=== PATIENT | male | born 1970 | race Caucasian/White ===

== ENCOUNTER → 2016-08-21 | Outpatient (CLI) | payer OTHER ==
[~2016-08-21] MED LIST: LEVO50TA PO; PRLSR20 PO
[2016-08-21 14:27] LABS: ESTIMATED AVERAGE GLUCOSE 126 mg/dl; HA1C FLAG Normal (Normal)
[2016-08-21 17:08] LABS: ALT/SGPT 75 U/L (12-78); AST/SGOT 38 U/L (15-37); BLOOD UREA NITROGEN 9 mg/dl (7-18); CALCIUM 8.7 mg/dl (8.5-10.1); CARBON DIOXIDE 26 mmol/L (21-32); CHLORIDE 105 mmol/L (98-107); GLUCOSE 76 mg/dl (70-99); POTASSIUM 4.4 mmol/L (3.5-5.1); SODIUM 138 mmol/L (136-145)
[2016-08-21 17:19] LABS: ALB/GLOB RATIO 1.1 (0.9-2); ALKALINE PHOSPHATASE 92 U/L (45-117); CHOLESTEROL 234 mg/dl (0-200); CHOLESTEROL/HDL RATIO 8.1; HDL CHOLESTEROL 29 mg/dl; LDL CHOLESTEROL CALCULATED 166 mg/dl; TRIGLYCERIDES 197 mg/dl (0-150); VERY LOW DENSITY LIPOPROT CALC 39 mg/dl
== END | disposition home or self-care (01) ==
LOC: C.LABBC 12:13
PROVIDERS: ATTEND Internal Medicine
DX: R73.03 Prediabetes (principal)

== ENCOUNTER → 2017-03-04 | Outpatient (CLI) | payer OTHER ==
[2017-03-04 11:42] LABS: ALT/SGPT 68 U/L (12-78); AST/SGOT 39 U/L (15-37); BLOOD UREA NITROGEN 14 mg/dl (7-18); BUN/CREATININE RATIO 11.6 (10-20); CALCIUM 8.9 mg/dl (8.5-10.1); CARBON DIOXIDE 28 mmol/L (21-32); CHLORIDE 106 mmol/L (98-107); CHOLESTEROL 260 mg/dl (0-200); GLUCOSE 88 mg/dl (70-99); POTASSIUM 4.6 mmol/L (3.5-5.1); SODIUM 138 mmol/L (136-145)
[2017-03-04 12:11] LABS: ALKALINE PHOSPHATASE 85 U/L (45-117); CHOLESTEROL/HDL RATIO 7.4; HDL CHOLESTEROL 35 mg/dl; LDL CHOLESTEROL CALCULATED 199 mg/dl; TRIGLYCERIDES 128 mg/dl (0-150); VERY LOW DENSITY LIPOPROT CALC 26 mg/dl
[2017-03-04 12:21] LABS: ESTIMATED AVERAGE GLUCOSE 120 mg/dl; HA1C FLAG Normal (Normal)
--- NOTE | 2017-03-10 06:11 | CODING QUERY MEDICAL NECESSITY ---
CQSUPPORTING DIAGNOSIS NEEDED A supporting diagnosis is required for the test/procedure performed on this patient in order for us to be reimbursed by the patient's insurance. Please provide a supporting diagnosis for the following test/procedure listed below next to the test name along with your signature. *If there is no additional diagnosis for this patient that would support the following test/procedure please document that below next to the test/procedure. Test(s)/Procedure(s) that require a supporting diagnosis: BIN 03/04/17 GLYCATED HEMOGLOBIN TEST Provider Signature: Date: Thank you Charity Gill Health Information Management Once completed, please kindly fax back to [phone] For questions please call [phone]
== END | disposition home or self-care (01) ==
LOC: C.LABBC 07:28
PROVIDERS: ATTEND Internal Medicine
DX: E03.9 Hypothyroidism, unspecified (principal); R73.9 Hyperglycemia, unspecified

== ENCOUNTER → 2017-06-03 | Outpatient (CLI) | payer OTHER ==
[2017-06-03 11:32] LABS: CHOLESTEROL/HDL RATIO 7.4; THYROID STIMULATING HORMONE 2.06 uIu/ml (0.300-4.500)
== END | disposition home or self-care (01) ==
LOC: C.LABBC 08:16
PROVIDERS: ATTEND Internal Medicine
DX: E78.5 Hyperlipidemia, unspecified (principal); E03.9 Hypothyroidism, unspecified

== ENCOUNTER 2020-03-14 09:09 | Inpatient (IN) ==
[2020-03-14] MEDS ORDERED: NITROGLYCERIN SL 0.4 MG/TAB TAB SL STA (09:14)
[2020-03-14] MEDS ORDERED: NITROGLYCERIN 2% OINTMENT 30GM TUBE EXT SCH (09:15)
--- NOTE | 2020-03-14 09:19 | Emergency Department Note ---
History of Present Illness General Chief Complaint: Chest Pain Stated Complaint: Chest pain w/ radiation to left arm Time Seen by Provider: 03/14/20 09:10 Source: patient, family (), EMS, RN notes reviewed and old records reviewed Mode of arrival: EMS Limitations: no limitations History of Present Illness Provider Complaint: chest pain Onset (ago): hour(s) 3 Duration: constant Onset: other (while shaving) Pain Location: left chest Pain Radiation: LUE Severity: moderate Current Pain Intensity: 5 Quality: + aching Relieved By: + nitroglycerin Exacerbated By: + movement Associated symptoms: + nausea, + diaphoresis and + palpitations Treatments prior to arrival: aspirin This is a 49-year-old male who was shaving this morning approximately 3 hours ago when he began having left-sided chest pain that radiated into his left arm. He reports nothing is made the pain better or worse. He called EMS who gave the patient 324 of aspirin. He was then brought to the emergency department. The patient reports no cardiac history. He does cigarette smoke. He reports sweating as well as nausea with the pain. Home Medications Home Medications Medication Instructions Recorded Confirmed Type sildenafil 50 mg tablet 50 mg PO DAILY PRN #6 tab 04/13/19 03/14/20 History omeprazole 20 mg capsule,delayed 20 mg PO QAM cap 04/16/19 03/14/20 History release levothyroxine 150 mcg tablet 150 mcg PO DAILY #90 tab 09/22/19 03/14/20 Rx Allergies Allergy/AdvReac Type Severity Reaction Status Date / Time No Known Allergies Allergy Unverified 03/14/20 09:44 Past Med/Surg History Medical History Cigarette smoker Dyslipidemia Gastroesophageal reflux disease Hepatic steatosis Hypothyroidism Metabolic syndrome Social History Smoking Status: Current every day smoker Cigarettes Per Day: 1-1.5 ppd; Hx Alcohol Use: No Hx Substance Use: No Preferred Language: Finnish Communication Ability: Effective Real Estate Officer Required: No Beliefs That Will Affect Care: None marital status: Single Current Living Situation: Spouse Feels Safe at Home: Yes Review of Systems A total of 10 systems reviewed and were otherwise negative Physical Exam Vital Signs Vital Signs - 24 hr 03/14/20 09:30 03/14/20 09:39 08/20/20 09:46 Temperature 36.4 C L Temperature Source Oral Pulse Rate 52 L 56 L 57 L Pulse Rate from SpO2 Sensor 57 L 56 L Pulse Rhythm Regular Pulse Strength Normal Respiratory Rate 18 24 18 Respiratory Effort / Characteristics Non-Labored Spontaneous Respiratory Depth Normal Respiratory Pattern Regular Blood Pressure 138/99 112/65 97/68 L Blood Pressure Mean 112 77 76 Pulse Oximetry 99 93 93 Oxygen Delivery Method Room Air Sepsis Recent Fever Within 48 Hours No Sepsis New/Unexplained Change in Mental Status No Sepsis Action Taken by Nursing No Action Required 03/14/20 09:48 03/14/20 09:51 Temperature Temperature Source Pulse Rate Pulse Rate from SpO2 Sensor Pulse Rhythm Pulse Strength Respiratory Rate Respiratory Effort / Characteristics Respiratory Depth Respiratory Pattern Blood Pressure Blood Pressure Mean Pulse Oximetry 98 Oxygen Delivery Method Room Air Room Air Sepsis Recent Fever Within 48 Hours Sepsis New/Unexplained Change in Mental Status Sepsis Action Taken by Nursing VITAL SIGNS - Vital signs and nursing notes were reviewed. GENERAL - 49-year-old appearing stated age who is in no acute distress. Communicates well with provider and answers questions appropriately. SKIN - Without rashes. HEAD - NC/AT. EYES - PERRL with EOMI bilaterally. Sclera anicteric. Palpebral conjunctiva pink and moist with no injection noted. EARS - No deformities of external structures noted on gross examination bilaterally. No pain elicited with palpation of the tragus bilaterally. External auditory canals without discharge or otorrhea. Tympanic membranes pearly victoria without retraction or bulging. No fluid or purulent material visualized behind the TM. Handle of malleus, umbo, cone of light, pars tensa/flaccid all easily visualized. NOSE - Midline and without cyanosis. No epistaxis or purulent drainage noted. Septum midline without deviation or septal hematoma noted. MOUTH/OROPHARYNX - Without perioral cyanosis. Buccal mucosa pink and moist and without leukoplakia. Tongue midline with equal elevation of palate bilaterally. No tonsillar hypertrophy, erythema, or exudates noted. dentition noted. NECK - Neck with FROM. Supple to palpation. lymphadenopathy noted. No nuchal rigidity. LUNGS - Chest wall symmetric without accessory muscle use, intercostals retractions, or central cyanosis. Normal vesicular breath sounds CTA B/L. No wheezes, rales, or rhonchi appreciated. CARDIAC - RRR with S1/S2. No murmur, rubs, or gallops appreciated. ABDOMEN - Abdominal contour without pulsations or visible masses. BS normoactive all four quadrants. No tenderness, palpable masses, hepatosplenomegaly, or ascites noted. EXTREMITIES - No clubbing or peripheral cyanosis. No pretibial edema present. +3/5 radial, posterior tibial, and dorsalis pedis pulses palpated throughout. +5/5 strength noted in UE/LE bilaterally. NEUROLOGIC - Cranial nerves II through XII grossly intact. Sensory intact to light touch throughout. Patellar reflexes +2/4. PSYCH - A&Ox3 and cooperates fully with examiner. Pt is very pleasant and interacts well with examiner. Course Administered Medications Aspirin (Aspirin 81 Mg Ectab) 81 mg PO QAM [facility] Stop: 04/14/20 08:59 Last Admin: 03/15/20 07:56 Dose: 81 mg Documented by: [id number] Atorvastatin Calcium (Atorvastatin 40 Mg Tab) 80 mg PO QAM [facility] Stop: 04/14/20 08:59 Last Admin: 03/15/20 07:58 Dose: 80 mg Documented by: [id number] Enoxaparin Sodium (Enoxaparin Inj 40 Mg/0.4 Ml Syr) 40 mg SQ Q24H [facility] Stop: 04/13/20 17:59 Last Admin: 03/14/20 18:31 Dose: 40 mg Documented by: [id number] Sodium Chloride (Nss 1000ml) 1,000 mls @ 125 mls/hr IV .Q8H [facility] Stop: 04/13/20 15:29 Last Admin: 03/15/20 07:58 Dose: Not Given Documented by: [id number] Infusion: 03/15/20 07:56 Dose: 0 mls/hr Documented by: [id number] Admin: 03/14/20 23:41 Dose: 125 mls/hr Documented by: [id number] Infusion: 03/14/20 23:41 Dose: 125 mls/hr Documented by: [id number] Admin: 03/14/20 15:46 Dose: 125 mls/hr Documented by: [id number] Levothyroxine Sodium (Levothyroxine Sodium 150 Mcg Tablet) 150 mcg PO DAILYBB [facility] Stop: 04/14/20 06:29 Last Admin: 03/15/20 06:29 Dose: 150 mcg Documented by: [id number] Lisinopril (Lisinopril 5 Mg Tab) 5 mg PO QAM [facility] Stop: 04/14/20 08:59 Last Admin: 03/15/20 07:56 Dose: 5 mg Documented by: [id number] Pantoprazole Sodium (Pantoprazole 40 Mg Tab) 40 mg PO QAM [facility] Stop: 04/14/20 08:59 Last Admin: 03/15/20 07:57 Dose: 40 mg Documented by: [id number] Ticagrelor (Ticagrelor 90 Mg Tab) 90 mg PO BID [facility] Stop: 04/13/20 22:59 Last Admin: 03/15/20 07:56 Dose: 90 mg Documented by: [id number] Admin: 03/14/20 22:38 Dose: 90 mg Documented by: [id number] Discontinued Medications Atropine Sulfate (Atropine Sulfate 0.1 Mg/Ml 10ml Syr) Confirm Administered Dose 1 mg IV .STK-MED ONE Stop: 03/14/20 10:18 Last Admin: 03/14/20 15:12 Dose: Not Given Documented by: [id number] Atropine Sulfate (Atropine Sulfate 0.1 Mg/Ml 10ml Syr) Confirm Administered Dose 1 mg IV .STK-MED ONE Stop: 03/14/20 10:22 Last Admin: 03/14/20 15:09 Dose: 1 mg Documented by: [id number] Dopamine HCl/Dextrose (Dopamine 400mg / 250ml D5w ([facility] Use Only)) Confirm Administered Dose 400 mg .ROUTE .STK-MED ONE Stop: 03/14/20 10:21 Last Admin: 03/14/20 17:43 Dose: Not Given Documented by: [id number] Eptifibatide (Eptifibatide 2 Mg/Ml 10 Ml Vial ([facility] Use Only)) Confirm Administered Dose 40 mg IV .STK-MED ONE Stop: 03/14/20 10:26 Last Admin: 03/14/20 15:11 Dose: 1.4 mg Documented by: [id number] Eptifibatide (Eptifibatide 2 Mg/Ml 10 Ml Vial ([facility] Use Only)) Confirm Administered Dose 20 mg IV .STK-MED ONE Stop: 03/14/20 10:29 Last Admin: 03/14/20 15:10 Dose: 20 mg Documented by: [id number] Fentanyl Citrate (Fentanyl Citrate 100 Mcg/2 Ml Vial) Confirm Administered Dose 100 mcg .ROUTE .STK-MED ONE Stop: 03/14/20 09:43 Last Admin: 03/14/20 17:42 Dose: Not Given Documented by: [id number] Heparin Sodium (Porcine) (Heparin Sod (Porcine) 1000 Unit/Ml 10 Ml Vial) Confirm Administered Dose 10,000 units .ROUTE .STK-MED ONE Stop: 03/14/20 09:41 Last Admin: 03/14/20 09:41 Dose: 5,000 units Documented by: [id number] Cosigned by: [id number] Heparin Sodium (Porcine) (Heparin Sod (Porcine) 1000 Unit/Ml 10 Ml Vial) 5,000 units IV ONE ONE Stop: 03/14/20 09:42 Last Admin: 03/14/20 09:46 Dose: Not Given Documented by: [id number] Heparin Sodium (Porcine) (Heparin (Porcine) 1000 Unit/Ml 10 Ml ([facility] Use Only)) Confirm Administered Dose 10,000 units .ROUTE .STK-MED ONE Stop: 03/14/20 09:43 Last Admin: 03/14/20 15:12 Dose: 5,000 units Documented by: [id number] Heparin Sodium/Sodium Chloride (Heparin In Nss Infusion 1000 Unit/500 Ml (2 U/Ml) Bag) Confirm Administered Dose 3,000 units IV .STK-MED ONE Stop: 03/14/20 09:43 Last Admin: 03/14/20 17:42 Dose: Not Given Documented by: [id number] Sodium Chloride (Nss 1000ml) 1,000 mls @ 100 mls/hr IV .Q10H [facility] Stop: 03/14/20 18:44 Last Infusion: 03/14/20 13:49 Dose: 0 mls/hr Documented by: [id number] Admin: 03/14/20 13:32 Dose: 100 mls/hr Documented by: [id number] Sodium Chloride (Nss) 500 mls @ 125 mls/hr IV .Q4H [facility] Stop: 04/13/20 13:59 Last Infusion: 03/14/20 17:47 Dose: 0 mls/hr Documented by: [id number] Admin: 03/14/20 15:08 Dose: 125 mls/hr Documented by: [id number] Sodium Chloride (Nss) 500 mls @ 999 mls/hr IV .Q31M [facility] Stop: 03/14/20 16:00 Last Infusion: 03/14/20 15:34 Dose: 0 mls/hr Documented by: [id number] Admin: 03/14/20 14:45 Dose: 999 mls/hr Documented by: [id number] Levothyroxine Sodium (Levothyroxine Sodium 150 Mcg Tablet) 150 mcg PO ONE ONE Stop: 03/14/20 13:30 Last Admin: 03/14/20 15:14 Dose: 150 mcg Documented by: [id number] Metoprolol Tartrate (Metoprolol Tartrate 1 Mg/Ml Vial) Confirm Administered Dose 5 mg IV .[facility]-MED ONE Stop: 03/14/20 10:30 Last Admin: 03/14/20 15:10 Dose: Not Given Documented by: [id number] Midazolam HCl (Midazolam Hcl 1 Mg/Ml 2ml Vial) Confirm Administered Dose 2 mg .ROUTE .[facility] ONE Stop: 03/14/20 09:43 Last Admin: 03/14/20 17:45 Dose: Not Given Documented by: [id number] Nicardipine HCl (Nicardipine Hcl Inj 2.5 Mg/Ml 10 Ml Amp) Confirm Administered Dose 25 mg .ROUTE .[facility] ONE Stop: 03/14/20 09:43 Last Admin: 03/14/20 17:42 Dose: Not Given Documented by: [id number] Nitroglycerin (Nitroglycerin 2% Ointment 30gm Tube) 1 inch EXT Q6H [facility] Stop: 04/13/20 09:14 Last Admin: 03/14/20 09:23 Dose: 1 inch Documented by: [id number] Nitroglycerin (Nitroglycerin Sl 0.4 Mg/Tab Tab) 0.4 mg SL NOW STA Stop: 03/14/20 09:15 Last Admin: 03/14/20 09:23 Dose: 0.4 mg Documented by: [id number] Nitroglycerin/Dextrose (Nitroglycerin/D5w 100mcg/Ml 20ml Syr) Confirm Administered Dose 2,000 mcg .ROUTE .[facility]-MED ONE Stop: 03/14/20 10:18 Last Admin: 03/14/20 17:44 Dose: Not Given Documented by: [id number] Norepinephrine Bitartrate (Norepinephrine Bitartrate 1 Mg/Ml 4 Ml Vial ([facility] Use Only)) Confirm Administered Dose 8 mg .ROUTE .[facility]-MED ONE Stop: 03/14/20 10:27 Last Admin: 03/14/20 17:45 Dose: Not Given Documented by: [id number] Ondansetron HCl (Ondansetron Inj 2 Mg/Ml 2 Ml Vial) Confirm Administered Dose 4 mg .ROUTE .STK-MED ONE Stop: 03/14/20 10:25 Last Admin: 03/14/20 15:09 Dose: 4 mg Documented by: [id number] Ticagrelor (Ticagrelor 90 Mg Tab) Confirm Administered Dose 180 mg PO .STK-MED ONE Stop: 03/14/20 11:05 Last Admin: 03/14/20 15:10 Dose: 180 mg Documented by: [id number] Medical Decision Making Differential Diagnosis + pneumothorax, + stable angina, + unstable angina pectoris, + atypical chest pain, + st elevation myocardial infarction, + costochondritis, + chest pain, + cardiac ischemia, + myocarditis and + pericarditis Medical Records Attestation: I reviewed the patient's medical records. Home Medications Current Medication List: was personally reviewed by me Laboratory Data Attestation: I reviewed the patient's lab results. Result diagrams: 03/15/20 04:30 03/15/20 04:30 Labs: Lab Results 03/14/20 03/14/20 03/14/20 Range/Units 09:15 09:15 09:15 WBC 9.55 (4.8-10.8) K/uL RBC 5.23 (4.7-6.1) M/uL Hgb 16.2 (14.0-18.0) g/dL Hct 47.8 (42-52) % MCV 91.4 (80-100) fL MCH 31.0 (25-34) pg MCHC 33.9 (32-36) g/dL RDW Std Deviation 50.3 H (36.4-46.3) fL RDW Coeff of Cathi 14.9 H (11.5-14.5) % Plt Count 162 (130-400) K/uL MPV 12.2 H (7.4-10.4) fL Immature Gran % (Auto) 0.1 % Neut % (Auto) 75.9 % Lymph % (Auto) 17.9 % [place] % (Auto) 4.3 % Eos % (Auto) 1.2 % Baso % (Auto) 0.6 % Neut # (Auto) 7.25 H (1.4-6.5) K/uL Lymph # (Auto) 1.71 (1.2-3.4) K/uL [place] # (Auto) 0.41 (0.11-0.59) K/uL Eos # (Auto) 0.11 (0-0.5) K/uL Baso # (Auto) 0.06 (0-0.2) K/uL Immature Gran # (Auto) 0.01 (0.00-0.02) K/uL PT 11.2 (9.0-12.0) Seconds INR 1.1 (0.9-1.1) APTT 24.3 (21.0-31.0) Seconds PTT Ratio 0.9 Sodium 138 (136-145) mmol/L Potassium 4.7 (3.5-5.1) mmol/L Chloride 109 H (98-107) mmol/L Carbon Dioxide 25 (21-32) mmol/L Anion Gap 4.0 (3-11) BUN 15 (7-18) mg/dl Creatinine 1.35 (0.6-1.4) mg/dl Est Cr Clr Drug Dosing 88.5 ml/min Est GFR ( Amer) 71.4 Est GFR (Non-Af Amer) 61.6 BUN/Creatinine Ratio 11.1 (10-20) Glucose 120 H (70-99) mg/dl Calcium 8.5 (8.5-10.1) mg/dl Total Bilirubin 0.5 (0.2-1) mg/dl AST 37 (15-37) U/L ALT 52 (12-78) U/L Alkaline Phosphatase 82 (45-117) U/L Total Creatine Kinase 273 (39-308) U/L CK-MB (CK-2) 1.7 (0.5-3.6) ng/ml CK/CKMB % Calc 0.6 (0-3.0) Troponin I < 0.015 (0-0.045) ng/ml Total Protein 7.2 (6.4-8.2) gm/dl Albumin 3.7 (3.4-5.0) gm/dl Globulin 3.5 (2.5-4.0) gm/dl Albumin/Globulin Ratio 1.0 (0.9-2) Lipase 65 L (73-393) U/L Random Cortisol mcg/dl Specimen Hemolysis 08/20/20 Range/Units 09:15 WBC (4.8-10.8) K/uL RBC (4.7-6.1) M/uL Hgb (14.0-18.0) g/dL Hct (42-52) % MCV (80-100) fL MCH (25-34) pg MCHC (32-36) g/dL RDW Std Deviation (36.4-46.3) fL RDW Coeff of Cathi (11.5-14.5) % Plt Count (130-400) K/uL MPV (7.4-10.4) fL Immature Gran % (Auto) % Neut % (Auto) % Lymph % (Auto) % [place] % (Auto) % Eos % (Auto) % Baso % (Auto) % Neut # (Auto) (1.4-6.5) K/uL Lymph # (Auto) (1.2-3.4) K/uL [place] # (Auto) (0.11-0.59) K/uL Eos # (Auto) (0-0.5) K/uL Baso # (Auto) (0-0.2) K/uL Immature Gran # (Auto) (0.00-0.02) K/uL PT (9.0-12.0) Seconds INR (0.9-1.1) APTT (21.0-31.0) Seconds PTT Ratio Sodium (136-145) mmol/L Potassium (3.5-5.1) mmol/L Chloride (98-107) mmol/L Carbon Dioxide (21-32) mmol/L Anion Gap (3-11) BUN (7-18) mg/dl Creatinine (0.6-1.4) mg/dl Est Cr Clr Drug Dosing ml/min Est GFR ( Amer) Est GFR (Non-Af Amer) BUN/Creatinine Ratio (10-20) Glucose (70-99) mg/dl Calcium (8.5-10.1) mg/dl Total Bilirubin (0.2-1) mg/dl AST (15-37) U/L ALT (12-78) U/L Alkaline Phosphatase (45-117) U/L Total Creatine Kinase (39-308) U/L CK-MB (CK-2) (0.5-3.6) ng/ml CK/CKMB % Calc (0-3.0) Troponin I (0-0.045) ng/ml Total Protein (6.4-8.2) gm/dl Albumin (3.4-5.0) gm/dl Globulin (2.5-4.0) gm/dl Albumin/Globulin Ratio (0.9-2) Lipase (73-393) U/L Random Cortisol 34.46 mcg/dl Specimen Hemolysis Imaging Data Chest x-ray: Radiologist's impression: [place], [place] [phone] XRay Report Patient: MARGARITO SZYMANSKI Date: 03/14/20 MR#: [id number]: [id number] [facility] Acct ID:[id number]: Date: 1970[facility] Zip: [place] [address] Age: 49Location: CC Sex: M Room/Bed: Att Phy: Jero Cerna, MDDiagnosis: Chest pain w/ radiation to left arm Stephanie Phy: Raji Barnett MDService Date: 03/14/20 Fam Phy:Interpreting Phy: Naman Malave MD Admit Phy: Ordering Phy: Vipin Vick MD cc: ~ XR chest 1V portable CLINICAL HISTORY: Atypical chest pain COMPARISON STUDY: 09/06/2012 FINDINGS: The cardiac and mediastinal contours are normal. There is no evidence of focal pulmonary consolidation. There is no evidence of failure. No pleural effusions are visualized.[ IMPRESSION: No active disease in the chest. ACT 112: Negative or not required by law. Electronically signed by: Naman Malave M.D. 03/14/2020 10:19 AM Dictated: 03/14/20 1018 Transcribed: 03/14/20 1018 ECG Data Attestation: I personally reviewed and interpreted this ECG as follows: Indication: chest pain Rate (beats per minute): 53 Rhythm: sinus bradycardia Findings: + T-wave inversion (lateral leads) and + ST elevation (Inferior) Comparison ECG Date: from (08/06/12) Change: the following changes noted (New t wave inversions, st elevations inferior leads) MDM Narrative This is a 49-year-old male who presents emergency department complaining of chest pain. Patient's EKG is remarkable for acute changes. He does not quite meet stemi criteria so cardiology was immediately paged. In the meantime the patient was given nitro which took the patient's pain away. He was also given heparin. Cardiology was kind enough to see the patient at the bedside and the patient was taken to the [facility]. Patient was seen and evaluated as above in room C9. Review was performed of nursing notes and vital signs. I did review pertinent previous visits and patient history. After obtaining a thorough history and physical examination the above work up was performed. An order was placed for continuous cardiac monitoring. The monitor shows a rate of 58 with NS rhythm. The patient was evaluated during the global COVID-19 pandemic, and that diagnosis was suspected/considered upon their initial presentation. Their evaluation, treatment and testing was consistent with current guidelines for patients who present with complaints or symptoms that may be related to COVID- 19. Impression & Plan Chest pain, Acute coronary syndrome Critical Care Time I have personally spent greater than 30 minutes of critical care time in the direct management of this patient. This includes bedside care, interpretation of diagnostic studies, and testing, discussion with consultants, patient, and family members, and other required patient management activities. This 30 minutes is in excess of all separately billable procedures. Discharge Plan Visit Data Chief Complaint: Chest Pain Stated Complaint: Chest pain w/ radiation to left arm ED Provider: Vipin Vick Discharge Problem: Chest pain, Acute coronary syndrome Patient Disposition: Still a Patient Discharge Instructions Interventions: ED Discharge Assessment Last Done: 03/14/20 09:51 Discharge Problem: Chest pain Qualifiers: Chest pain type: chest pain due to myocardial ischemia Ischemic chest pain type: unspecified angina pectoris type Qualified Code(s): I25.9 - Chronic ischemic heart disease, unspecified
[2020-03-14 09:27] LABS: Basophils # (auto) 0.06 K/uL (0-0.2); Basophils % (auto) 0.6 %; Eosinophils # (auto) 0.11 K/uL (0-0.5); Eosinophils % (auto) 1.2 %; Hematocrit (blood only) 47.8 % (42-52); Hemoglobin 16.2 g/dL (14.0-18.0); Immature Granulocytes # (auto) 0.01 K/uL (0.00-0.02); Immature Granulocytes % (auto) 0.1 %; Lymphocytes # (auto) 1.71 K/uL (1.2-3.4); Lymphocytes % (auto) 17.9 %; Mean Corpuscular Hgb Conc 33.9 g/dL (32-36); Mean Corpuscular Volume 91.4 fL (80-100); Mean Platelet Volume 12.2 fL (7.4-10.4); Monocytes # (auto) 0.41 K/uL (0.11-0.59); Monocytes % (auto) 4.3 %; Neutrophils # (auto) 7.25 K/uL (1.4-6.5); Neutrophils % (auto) 75.9 %; Platelet Count 162 K/uL (130-400); RDW Coefficient of Variation 14.9 % (11.5-14.5); RDW Standard Deviation 50.3 fL (36.4-46.3); Red Blood Count 5.23 M/uL (4.7-6.1); White Blood Count 9.55 K/uL (4.8-10.8)
[2020-03-14 09:38] LABS: INR 1.1 (0.9-1.1); Partial Thromboplastin Ratio 0.9; Partial Thromboplastin Time 24.3 Seconds (21.0-31.0); Prothrombin Time 11.2 Seconds (9.0-12.0)
[2020-03-14] MEDS ORDERED: HEPARIN SOD (PORCINE) 1000 UNIT/ML 10 ML VIAL ONE (09:40)
[2020-03-14] MEDS ORDERED: HEPARIN SOD (PORCINE) 1000 UNIT/ML 10 ML VIAL IV ONE (09:41)
[2020-03-14] MEDS ORDERED: HEPARIN (PORCINE) 1000 UNIT/ML 10 ML (CATH LAB USE ONLY) ONE (09:42)
[2020-03-14] MEDS ORDERED: MIDAZOLAM HCL 1 MG/ML 2ML VIAL ONE (09:42)
[2020-03-14] MEDS ORDERED: NiCARDipine HCL INJ 2.5 MG/ML 10 ML AMP ONE (09:42)
[2020-03-14] MEDS ORDERED: fentaNYL citrate 100 MCG/2 ML VIAL ONE (09:42)
--- NOTE | 2020-03-14 09:51 | Cardiology Consultation ---
Date of Consultation March 14, 2020 Assessment & Plan (1) Acute coronary syndrome: (2) Dyslipidemia: (3) Cigarette smoker: ASSESSMENT/PLAN: 1. Acute coronary syndrome: Presentation consistent with acute coronary syndrome and suspicious for acute RI. Troponins are pending. Suspect severe RCA CAD based on ECG. Does not quite meet criteria for STEMI but does have some ST elevation in the inferior leads. Recommend emergent cardiac catheterization. Requested heparin to be given in the ER. He already received full dose aspirin. Dr. Avendaño of interventional cardiology was notified immediately. Risk and benefits of cardiac catheterization were discussed with patient and his . They were made aware that CT surgery is not available facility. He was agreeable to proceed. 2. Dyslipidemia: We discussed the importance of compliance with statin therapy while awaiting transport to [facility]. Recommend high intensity statin therapy. 3. Tobacco abuse: Stop smoking. 4. Hypothyroidism: Will defer to hospitalist service. Not clear if he has been compliant with his levothyroxine. 5. Disposition: Emergent cardiac catheterization recommended. Patient care discussed with Dr. Vick of the hospitalist service. 35 minutes of critical care time spent, including managing his acute coronary syndrome/ suspected acute RI, coordinating care with the [facility] and interventionalist as well as the emergency department. He was also personally accompanied to the [facility] until he could receive his emergent procedure. History of Present Illness Reason for Consultation: Unstable angina and abnormal ECG Requesting Physician: Dr. Vick Attending Physician: Dr. Vick History of Present Illness Mr. Layne is a pleasant 49-year-old gentleman with a history significant for dyslipidemia and hypothyroidism. This morning at approximately 6 AM, he was shaving and developed left-sided and central chest discomfort described as a burning pressure. It radiated down his left arm and also his right arm. There was associated diaphoresis, chills, shortness of breath, and weakness. He called EMS who gave him 4 aspirin in route. In the emergency department, he had an ECG which demonstrated Q waves inferiorly with [address] elevation in lead III and less than [address] elevation in lead aVF. There are also ST/T wave abnormalities in the anterior leads with deep T wave inversion laterally. Dr. Vick of the emergency department called me immediately to discuss his care. I presented to the bedside. Nitroglycerin was given in the ER x1 with improvement of his chest pain but it persisted. Another dose of nitroglycerin was requested from nursing staff and this further improved his chest discomfort to the point where he believed his chest discomfort resolved however the left arm pain continued. This lasted only a few minutes before the chest pain once again resumed. He denies syncope, near syncope, palpitations, edema, or bleeding such as melena, hematochezia, or hematuria. His last meal was last night. He has not had any recent chest discomfort or shortness of breath. He admits that he is not compliant with atorvastatin due to concerns of adverse reaction such as "muscle damage." He had labs recently done as an outpatient and his TSH was significantly elevated. No changes have yet been made to his medications. It is not clear if he has been taking levothyroxine consistently. Review of systems: As above. Review of systems otherwise negative/unremarkable. Family history: No known premature CAD in first-degree relatives. Uncle had CAD. Social history: He smokes 1 to 1.5 packs/day since the age of 21. No alcohol. No drugs. 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 His is present at the bedside. Allergies Allergy/AdvReac Type Severity Reaction Status Date / Time No Known Allergies Allergy Unverified 03/14/20 09:44 Home Medications Home Medications Medication Instructions Recorded Confirmed Type sildenafil 50 mg tablet 50 mg PO DAILY PRN #6 tab 04/13/19 03/14/20 History omeprazole 20 mg capsule,delayed 20 mg PO QAM cap 04/16/19 03/14/20 History release levothyroxine 150 mcg tablet 150 mcg PO DAILY #90 tab 09/22/19 03/14/20 Rx Patient History Medical History (Updated 03/14/20 @ 09:50 by Jero Cerna MD) Cigarette smoker Dyslipidemia Gastroesophageal reflux disease Hepatic steatosis Hypothyroidism Metabolic syndrome Social History Smoking Status: Current every day smoker Feels Safe at Home: Yes Physical Exam Physical Exam: Gen.: No acute distress. Alert and oriented. HEENT: Anicteric sclera. Neck: No JVD. No bruits. Normal carotid upstrokes bilaterally. Cardiac: PMI was nondisplaced. No ventricular heave. Regular and mildly cardiac in the 50s. Normal S1-S2. No murmurs, rubs, or gallops. Pulmonary: Clear to auscultation bilaterally without wheezes, rales, or rhonchi. Abdomen: Soft, nontender, nondistended, with normoactive bowel sounds. No bruits noted. Extremities: 2+ radial pulses bilaterally. 2+ posterior tibialis pulses bilaterally. No edema or cyanosis. No palpable cords. Psychiatric: Affect appears appropriate. Chest: Nontender to palpation. Results & Data ([facility]) Vital Signs (Past 12 Hours) Vital Signs Temp Pulse Resp BP Pulse Ox 03/14/20 09:30 36.4 C L 52 L 18 138/99 99 Laboratory Results Laboratory Results - last 24 hr 03/14/20 03/14/20 03/14/20 09:15 09:15 09:15 WBC 9.55 RBC 5.23 Hgb 16.2 Hct 47.8 MCV 91.4 MCH 31.0 MCHC 33.9 RDW Std Deviation 50.3 H RDW Coeff of Cathi 14.9 H Plt Count 162 MPV 12.2 H Immature Gran % (Auto) 0.1 Neut % (Auto) 75.9 Lymph % (Auto) 17.9 [place] % (Auto) 4.3 Eos % (Auto) 1.2 Baso % (Auto) 0.6 Neut # (Auto) 7.25 H Lymph # (Auto) 1.71 [place] # (Auto) 0.41 Eos # (Auto) 0.11 Baso # (Auto) 0.06 Immature Gran # (Auto) 0.01 PT 11.2 INR 1.1 APTT 24.3 PTT Ratio 0.9 Sodium 138 Potassium 4.7 Chloride 109 H Carbon Dioxide 25 Anion Gap 4.0 BUN 15 Creatinine 1.35 Est Cr Clr Drug Dosing 88.5 Est GFR ( Amer) 71.4 Est GFR (Non-Af Amer) 61.6 BUN/Creatinine Ratio 11.1 Glucose 120 H Calcium 8.5 Total Bilirubin 0.5 AST 37 ALT 52 Alkaline Phosphatase 82 Total Creatine Kinase 273 CK-MB (CK-2) 1.7 CK/CKMB % Calc 0.6 Troponin I < 0.015 Total Protein 7.2 Albumin 3.7 Globulin 3.5 Albumin/Globulin Ratio 1.0 Lipase 65 L Specimen Hemolysis Diagnostic Findings Chest x-ray personally reviewed from 03/14/2020 at the bedside: No infiltrate noted. No obvious acute abnormality. Radiology interpretation pending. ECGs personally reviewed: ECG 03/14/2020 at 9:12 AM: Sinus bradycardia with first-degree AV block at 53 bpm. Minor Q waves inferiorly with ST elevation of approximately 1 mm in lead III with approximately 0.[address] elevation in lead aVF. ST depression with T wave inversion laterally. Nonspecific ST abnormality with T wave inversion anterior leads. ECG 03/14/2020 9:27 AM: Sinus bradycardia with first-degree AV block at 53 bpm. No significant change from initial ECG. Medications Administered Current Inpatient Medications Nitroglycerin (Nitroglycerin 2% Ointment 30gm Tube) 1 inch EXT Q6H ENDY Stop: 04/13/20 09:14 Last Admin: 03/14/20 09:23 Dose: 1 inch Documented by: PG Care Time/CCT Total # of Minutes Spent Total Time Spent with Patient: Total time spent is greater than 50% in coordination of care (as documented) at patient's floor/unit and/or counseling patient: Critical Care Time: Yes Total Critical Care Time: 35 Coding Level of Care Code None Diagnoses Acute coronary syndrome I24.9 Dyslipidemia E78.5 Cigarette smoker F17.210 Additional Codes Critical Care Time - Critical Care Time: Yes ([id number]) Comment [id number]
--- NOTE | 2020-03-14 10:06 | Pre Anesthesia Assessment ---
Date of Service March 14, 2020 Pre Sedation Assessment Vital Signs Temp Pulse Resp BP Pulse Ox 03/14/20 09:48 98 03/14/20 09:46 57 L 18 97/68 L 93 03/14/20 09:39 56 L 24 112/65 93 03/14/20 09:30 36.4 C L 52 L 18 138/99 99 Cardiovascular + bradycardic Respiratory normal respiratory effort, lungs clear to auscultation Pre-Sedation Airway Assessment Smoking Status: Current every day smoker Mallampati Class: IV ASA: ASA3 NPO Status Date of Last Intake of Fluids: 03/13/20 Time of Last Intake of Fluids: 22:00 Date of Last Intake of Solid Food: 03/13/20 Time of Last Intake of Solid Foods: 22:00 Procedure Planning Contraindications for Sedation: none Current Medications Reviewed: Yes Notes The planned sedation has been discussed with the patient. Informed Consent was obtained. I have identified the patient, determined the appropriateness of sedation and have assessed the patient immediately prior to the procedure. All medicine(s) and interventions are by my order.
[2020-03-14 10:09] LABS: Alanine Aminotransferase 52 U/L (12-78); Albumin Level 3.7 gm/dl (3.4-5.0); Alkaline Phosphatase 82 U/L (45-117); Aspartate Aminotransferase 37 U/L (15-37); BUN Creatinine Ratio 11.1 (10-20); Bilirubin,Total 0.5 mg/dl (0.2-1); Blood Urea Nitrogen 15 mg/dl (7-18); Calcium 8.5 mg/dl (8.5-10.1); Carbon Dioxide 25 mmol/L (21-32); Chloride 109 mmol/L (98-107); Creatine Kinase 273 U/L (39-308); Creatine Kinase MB 1.7 ng/ml (0.5-3.6); Creatinine Clr Calc Pharmacy 88.5 ml/min; Est GFR (African American) 71.4; Est GFR (Non-African American) 61.6; Globulin 3.5 gm/dl (2.5-4.0); Glucose 120 mg/dl (70-99); Lipase 65 U/L (73-393); Potassium 4.7 mmol/L (3.5-5.1); Sodium 138 mmol/L (136-145); Total Protein 7.2 gm/dl (6.4-8.2); Troponin I < 0.015 ng/ml (0-0.045)
[2020-03-14] MEDS ORDERED: NITROGLYCERIN/D5W 100MCG/ML 20ML SYR ONE (10:17)
[2020-03-14] MEDS ORDERED: ATROPINE SULFATE 0.1 MG/ML 10ML SYR IV ONE ×2 (10:17→10:21)
[2020-03-14] MEDS ORDERED: DOPamine 400MG / 250ML D5W (CATH LAB USE ONLY) ONE (10:20)
--- NOTE | 2020-03-14 10:20 | XRay Report ---
XR chest 1V portable CLINICAL HISTORY: Atypical chest pain COMPARISON STUDY: 09/06/2012 FINDINGS: The cardiac and mediastinal contours are normal. There is no evidence of focal pulmonary co nsolidation. There is no evidence of failure. No pleural effusions are visualized.[ IMPRESSION: No active disease in the chest. ACT 112: Negative or not required by law. Electronically signed by: Naman Malave M.D. 03/14/2020 10:19 AM
[2020-03-14] MEDS ORDERED: ONDANSETRON INJ 2 MG/ML 2 ML VIAL ONE (10:24)
[2020-03-14] MEDS ORDERED: EPTIFIBATIDE 2 MG/ML 10 ML VIAL (CATH LAB USE ONLY) IV ONE ×2 (10:25→10:28)
[2020-03-14] MEDS ORDERED: NOREPINEPHRINE BITARTRATE 1 MG/ML 4 ML VIAL (CATH LAB USE ONLY) ONE (10:26)
[2020-03-14] MEDS ORDERED: METOPROLOL TARTRATE 1 MG/ML VIAL IV ONE (10:29)
[2020-03-14] MEDS ORDERED: TICAGRELOR 90 MG TAB PO ONE (11:04)
[2020-03-14] MEDS ORDERED: ONDANSETRON INJ 2 MG/ML 2 ML VIAL IV PRN (11:08)
[2020-03-14] MEDS ORDERED: ICU PROTOCOL FOR HYPERGLYCEMIA PRN (11:08)
[2020-03-14] MEDS ORDERED: ACETAMINOPHEN 325 MG TAB PO PRN (11:08)
--- NOTE | 2020-03-14 11:08 | Post Anesthesia Assessment ---
Date of Service March 14, 2020 Post Sedation Assessment Vital Signs Temp Pulse Resp BP Pulse Ox 03/14/20 09:48 98 03/14/20 09:46 57 L 18 97/68 L 93 03/14/20 09:39 56 L 24 112/65 93 03/14/20 09:30 97.5 F L 52 L 18 138/99 99 Recovery Score Activity: Moves 4 extremities Respiration: Deep Breath/Cough Circulation: +/-20% PreAnes Value Consciousness: Fully Awake Oxygen Saturation: O2 needed for >90% Discharge Sedation Level of Care: Fast Track Phase II Post Sedation Plan On clinical assessment, the patient appears to have tolerated the sedation without complications. Patient is recovering as anticipated. Patient will continue to be monitored by nursing and may be discharged when sedation discharge criteria are met per below protocol. Upon Completions of procedure up to 15 minutes continue every 5 minute vital signs and the P.A.R. score; then discharge to a Phase I or Fast Track to Phase II per the following guidelines: * Discharge Patient to appropriate Phase II area if PAR is 8 or greater or return to pre- procedure baseline. The post - procedure orders will be as directed. * If PAR score is less than 8 or not return to pre-procedure baseline then patient will follow Phase I monitoring till PAR is reached for Phase II. The Phase I may be done in procedure room or may call to secure a Phase I area. * If naloxone or flumazenil are used for reversal, hold in Phase I for continued monitoring from when last reversal dose was given for a minimum of 60 minutes or longer pending the nurse and/or physician discretion of patient condition before discharge to Phase II. Please call the Sedation Physician to re-evaluate and complete post-note for discharge to Phase II area. Do NOT discharge from procedure sedation or Phase 1 until post- sedation evaluation note is complete by procedure /sedation MD Sedation Discharge Instructions to be given to the patient at discharge to home.
[2020-03-14] MEDS ORDERED: SODIUM CHLORIDE 0.9% 1000ML 1,000 ML IV SCH (11:15)
--- NOTE | 2020-03-14 11:32 | Cardiac Catheterization ---
[facility] Data: [employer] Cardiac Status Clinical evaluation leading to the procedure CAD Presenation: STEMI Anginal Classification: CCS IV Heart Failure: No Cardiogenic Shock within 24 Hours: Yes Cardiac Arrest within 24 Hours: No Imaging Studies Past 6 Months: No Stress Studies Past 6 Months: No Diagnostic Physicians Name: Diego Avendaño MD Status: Emergency Closure Device Percutaneous Entry Location: Radial Closure Device: Radial Band Recommendations: PCI without planned CABG PCI Indication: Immediate PCI for STEMI Lesion Segment Name: Proximal RCA Culprit Artery: Yes Stenosis Prior to Rx (%): 100 Chronic Total Occlusion: No IVUS: No FFR: No Pre-Procedure SHERLYN Flow: 0 Previously Treated Lesion: No Lesion Complexity: Non-High/Non-C Lesion Length (mm): 18 Thrombus Present: Yes Bifurcation Lesion: No Guidewire Across Lesion: Stenosis Post-Procedure (%): 0 Post-Procedure SHERLYN Flow: 3 Devices(s) Deployed: Yes Yes Intraprocedure Events Significant Disection: No Perforation: No Cardiac Cath Procedure Full Procedure Date March 14, 2020 Pre-Procedure Diagnosis Pre-Procedure Diagnosis: STEMI AUC Score AUC Score: 9 Post-Procedure Diagnosis Post-Procedure Diagnosis: Severe CAD, Successful PCI and Normal Intracardiac Pressures Procedure(s) Performed Procedure(s) Performed: Coronary Angiography, Left Heart Cath and Drug Eluting Stent Parts Sales Associate Diego Avendaño MD Float Remover(s) Madhav Estimated Blood Loss Estimated Blood Loss: 15 Medication(s) Medication(s): Fentanyl, Heparin, Integrilin, Lidocaine 1%, Nicardipine, Nitroglycerin and Versed Medication(s): Ticagrelor Summary of Findings Indication: Inferior STEMI Access: 6 Fr slender right radial artery Catheters: [place], pigtail, JR4 guide Findings: LM -medium caliber, tapers with 20% distal stenosis prior to bifurcation LAD -medium caliber vessel, 40% proximal stenosis prior to takeoff of first diagonal. Mid and distal segment luminal irregularities. Medium caliber first diagonal with 30% proximal disease. Very small second diagonal with diffuse disease Circumflex -medium caliber, proximal irregularities, 40% diffuse distal disease before left PLB.. RCA -dominant, large caliber, 100% proximal acute occlusion. After reestablished flow 90% mid RCA stenosis, 50 to 60% distal stenosis at bifurcation with PDA, right PAV. LVEDP -16 -- PCI -- Antithrombotic therapy: Heparin,, IC Integrilin, ticagrelor Procedure: RCA cannulated with JR4 guide BMW wire passed across lesion into distal vessel Proximal RCA lesion predilated with 2.5 compliant balloon With reestablished flow became bradycardic to the 20s, hypotensive to the 50s requiring atropine, IV fluid bolus and dopamine. Dilated lesion stented with 3.5 x 22 mm [place] drug-eluting stent Stent post-dilated with 3.75 noncompliant balloon Developed transient SVT. Dopamine transition to norepinephrine Noted to have residual severe mid RCA stenosis which was treated with 3.5 x 12 mm [place] drug-eluting stent. Mid RCA stent postdilated with 3.75 balloon After post dilation noted to have distal edge dissection Third EMILY (3.0 x 12 [place]) overlapped with distal aspect of mid RCA stent Post procedure SHERLYN 3 flow, stents well expanded with minimal residual stenosis and no apparent cardiac complications. 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 Inferior STEMI/100% acute proximal RCA occlusion 2. Moderate non-culprit coronary artery disease -50 to 60% residual distal RCA stenosis involving bifurcation of PDA, posterior AV branch 20% distal left main 40% proximal LAD 40% distal circumflex 3. Normal intracardiac filling pressure 4. Transient cardiogenic shock, symptomatic bradycardia requiring pressors. 5. Successful PCI of proximal RCA with single EMILY (3.5 x 22 mm marsha; postdilated with 3.75 NC). 6. Successful PCI of mid RCA with 2 overlapping EMILY (3.5 x 12, 3.0 x 12 mm [place]). 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 Trend troponins until peak, Check Echo Uptitrate beta-lyubov/ROBBIE as BP allows High-dose statin Consult cardiac Rehab Hemodynamics Rest Ao:: 121/73/91 Final Ao: 93/65/79 LV: 16 Recommendations Recommendations: PCI without planned CABG Specimens Specimens: None Radiation Exposure (mGy) 2771 Contrast (mls) 110 Fluids (cc crystalloids) Fluids (cc crystalloids): 620 Drains Drains: None Anesthesia Moderate Procedural Complication(s) None Disposition ICU I attest to the content of the Intraoperative Record and any orders documented therein. Any exceptions are noted below. [facility] Card Cath Procedure Codes Cardiac Catheterization Procedure 1: Cardiovascular Cath Procedures: 79375 Coronaries and LHC (+/-LV) Moderate Sedation Procedure 1: Sedation/Anesthesia: 98709 Mod Sedation by the same physician;Init15 Min Child Age 5 & Up Procedure 2: Sedation/Anesthesia: 97867 Mod Sedation by the same physician; Ea [id number] Minutes Stenting Procedure 1: Cardiovascular Stent Procedures: 45945 Perc transluminal revascularization of acute sub/total occl, aMI PG Care Time/CCT Total # of Minutes Spent Total Time Spent with Patient: Total time spent is greater than 50% in coordination of care (as documented) at patient's floor/unit and/or counseling patient:
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
[2020-03-14] MEDS ORDERED: LEVOTHYROXINE SODIUM 150 MCG TABLET PO ONE (13:29)
--- NOTE | 2020-03-14 13:36 | History & Physical Report ---
Date of Service March 14, 2020 Assessment & Plan (1) ST elevation (STEMI) myocardial infarction: Appreciate cardiology and ICU management Aspirin 324 mg given on route to hospital. Continue 81 mg p.o. daily Brilinta 90 mg twice daily Metoprolol tartrate 12.5 mg p.o. twice daily Lisinopril 5 mg p.o. every morning Atorvastatin 80 mg p.o. every morning Follow-up cardiac rehab (2) Cardiogenic shock: Transient during cardiac catheterization. Now appears resolved. MAP > 65. (3) Cigarette smoker: Tobacco cessation advised Nicotine replacement products as needed (4) Dyslipidemia: Lipid panel with a.m. labs Atorvastatin 80 mg p.o. daily as above (5) Gastroesophageal reflux disease: Switch omeprazole for pantoprazole as per hospital hospital formulary (6) Hypothyroidism: TSH 145 [February 19 2020]. Secondary to not taking his levothyroxine. No current myxedema crisis. Continue levothyroxine 150 mcg p.o. daily (7) Hepatic steatosis: Notable history of this. Follow-up outpatient with PCP. (8) Solitary pulmonary nodule: History of this. Chest x-ray unremarkable. Follow-up outpatient (9) History of prediabetes: History of this. HbA1c with a.m. labs. Glucose currently acceptable. Admission and Anticipated Discharge Date Admission Date: March 14, 2020 History of Present Illness Chief Complaint: Chest pain Primary Care Provider: Raji Barnett MD Julio Layne is a 49-year-old male with tobacco use disorder who presents to the ER with substernal chest pain. This started at approximately 6 AM while shaving, worse on exertion, substernal radiating to his left arm, burning. He had associated diaphoresis, nausea, shortness of breath. He called his friend at the [employer] who came out to assess him and called for an ambulance. ASA 324 mg given in route. Cardiology were consulted stat for chest pain with nondiagnostic ST elevation in inferior leads with T wave inversion laterally. Chest pain was persistent after the nitroglycerin x2 given and he was taken emergently to the [facility]. His cardiac catheterization showed an absent acute proximal RCA occlusion with successful PCI with x3 EMILY to RCA. During the catheterization he became bradycardic and hypotensive requiring IV fluid bolus and dopamine. He developed SVT and dopamine was transitioned to norepinephrine. Norepinephrine was weaned off prior to departure from the [facility]. When seen the patient was in the ICU after cardiac catheterization. He is chest pain-free at this time. He does report increased fatigue since being out of his levothyroxine for approximately 3 months. He reports being out of his medication since November as he had not seen his PCP in some time to refill this. Previously stable on 150 mcg p.o. daily. Allergies Allergy/AdvReac Type Severity Reaction Status Date / Time No Known Allergies Allergy Unverified 03/14/20 09:44 Home Medications Home Medications Medication Instructions Recorded Confirmed Type sildenafil 50 mg tablet 50 mg PO DAILY PRN #6 tab 04/13/19 03/14/20 History omeprazole 20 mg capsule,delayed 20 mg PO QAM cap 04/16/19 03/14/20 History release levothyroxine 150 mcg tablet 150 mcg PO DAILY #90 tab 09/22/19 03/14/20 Rx Past Med/Surg History Medical History CAD (coronary artery disease) Cigarette smoker Dyslipidemia Gastroesophageal reflux disease Hepatic steatosis Hypothyroidism Metabolic syndrome Surgical History S/P coronary artery stent placement Social History Smoking Status: Current every day smoker Cigarettes Per Day: 1-1.5 ppd; Hx Alcohol Use: No Hx Substance Use: No Preferred Language: New Zealander Communication Ability: Effective Timber Girdler Required: No Beliefs That Will Affect Care: None marital status: Single Current Living Situation: Spouse Feels Safe at Home: Yes Review of Systems Review of Systems: All systems reviewed & are unremarkable except as noted in HPI & below Physical Exam Constitutional: well developed; + not well nourished and no acute distress Eyes: PERRL, conjunctivae normal, anicteric sclerae ENMT: external ear and nose normal, oropharynx normal Neck: trachea midline, no thyromegaly Respiratory: Auscultation: + diminished lung sounds (Bibasal); no crackles, no rales, no rhonchi and no wheezes Cardiovascular: Rate/Rhythm: regular rate and regular rhythm Heart Sounds: no murmur Vessels: radial pulses present (Left) Extremities: normal capillary refill and + pedal edema (Trace equal bilateral ankles); no calf tenderness Gastrointestinal (Abdomen): normal bowel sounds, soft, nontender, no hepatosplenomegaly Musculoskeletal: no cyanosis or clubbing, extremities motor strength 5/5 Skin: no rashes, warm and dry Neurologic: moves all extremities and awake; no focal motor deficits and not c onfused Speech / Cognition: normal speech Motor/Sensory: no tremor and no pronator drift Cranial Nerves: normal facial strength Psychiatric: A+Ox3, euthymic affect Genitourinary: no CVA tenderness Lymphatic: no cervical or axillary lymphadenopathy Results & Data Results & Data ([facility]) Vital Signs (Past 12 Hours) Vital Signs Temp Pulse Pulse Resp BP BP Pulse Ox 03/14/20 13:00 35.4 C L 03/14/20 12:44 64 23 113/86 95 03/14/20 12:28 72 19 111/71 96 03/14/20 12:13 69 11 L 106/74 95 03/14/20 11:58 72 13 122/71 90 03/14/20 11:53 76 20 108/76 92 03/14/20 11:43 79 16 108/76 90 03/14/20 11:25 74 18 110/66 96 03/14/20 11:10 71 17 89/60 L 93 03/14/20 09:48 98 03/14/20 09:46 57 L 18 97/68 L 93 03/14/20 09:39 56 L 24 112/65 93 03/14/20 09:30 36.4 C L 52 L 18 138/99 99 Diagnostic Findings XR chest 1V portable IMPRESSION: No active disease in the chest. ECG Indication: chest pain Rate (beats per minute): 53 Rhythm: sinus bradycardia Findings: + 1st degree AV block and + ST elevation (Inferior) Comparison ECG Date: from (September 06, 2012) Additional Comments: Dynamic ischemic changes across EKGs with ST elevation and inferior leads and reciprocal depression in anterior leads with T wave inversion in anterolateral leads Code Status & VTE Plan Code Status Full VTE Prophylaxis Plan VTE Prophylaxis will be ordered: No PG Care Time/CCT Total # of Minutes Spent Total Time Spent with Patient: Total time spent is greater than 50% in coordination of care (as documented) at patient's floor/unit and/or counseling patient: Coding Level of Care Code 06263 Initial Inpt Care Lvl [address] elevation (STEMI) myocardial infarction I21.3 Cardiogenic shock R57.0 Cigarette smoker F17.210 Dyslipidemia E78.5 Gastroesophageal reflux disease K21.9 Hypothyroidism E03.9 Hepatic steatosis K76.0 Solitary pulmonary nodule R91.1 History of prediabetes Z87.898
[2020-03-14] MEDS ORDERED: SODIUM CHLORIDE 0.9% 500 ML IV SCH ×2 (14:00→15:30)
[2020-03-14] MEDS: SODIUM CHLORIDE 0.9% 1000ML 1,000 ML IV SCH ×2 (15:46→23:41)
--- NOTE | 2020-03-14 17:14 | XCELERA ---
[id number]
--- NOTE | 2020-03-14 17:44 | Billing Data ---
Date of Service March 14, 2020 Coding Level of Care Code Critical Care 1st 30-74 mins Time Spent (min) 34
[2020-03-14] MEDS: ENOXAPARIN INJ 40 MG/0.4 ML SYR SQ SCH (18:31)
[2020-03-14] MEDS ORDERED: METOPROLOL TARTRATE 25 MG TAB PO SCH (21:00)
[2020-03-14] MEDS: TICAGRELOR 90 MG TAB PO SCH (22:38)
[2020-03-15 05:02] LABS: Basophils # (auto) 0.04 K/uL (0-0.2); Basophils % (auto) 0.5 %; Eosinophils # (auto) 0.11 K/uL (0-0.5); Eosinophils % (auto) 1.3 %; Hematocrit (blood only) 42.7 % (42-52); Hemoglobin 14.3 g/dL (14.0-18.0); Immature Granulocytes # (auto) 0.01 K/uL (0.00-0.02); Immature Granulocytes % (auto) 0.1 %; Lymphocytes # (auto) 2.66 K/uL (1.2-3.4); Lymphocytes % (auto) 31.4 %; Mean Corpuscular Hemoglobin 30.7 pg (25-34); Mean Corpuscular Hgb Conc 33.5 g/dL (32-36); Mean Corpuscular Volume 91.6 fL (80-100); Monocytes % (auto) 7.1 %; Neutrophils # (auto) 5.06 K/uL (1.4-6.5); Neutrophils % (auto) 59.6 %; Platelet Count 140 K/uL (130-400); RDW Coefficient of Variation 15.4 % (11.5-14.5); RDW Standard Deviation 51.8 fL (36.4-46.3); Red Blood Count 4.66 M/uL (4.7-6.1); White Blood Count 8.48 K/uL (4.8-10.8)
[2020-03-15 05:30] LABS: Calcium 7.8 mg/dl (8.5-10.1); Creatinine Clr Calc Pharmacy 114.4 ml/min; Est GFR (African American) 97.9; Est GFR (Non-African American) 84.5; Magnesium 2.1 mg/dl (1.8-2.4); Potassium 4.1 mmol/L (3.5-5.1)
--- NOTE | 2020-03-15 05:30 | Electrocardiogram Report ---
Test Reason : Blood Pressure : / mmHG Vent. Rate : 053 BPM Atrial Rate : 053 BPM P-R Int : 232 ms QRS Dur : 088 ms QT Int : 448 ms P-R-T Axes : 056 072 114 degrees QTc Int : 420 ms Sinus bradycardia with 1st degree A-V block ST elevation, consider inferior injury pattern Abnormal ECG When compared with ECG of 06-SEP-2012 22:28, KS interval has increased Vent. rate has decreased BY [address] now depressed in Anterior leads Nonspecific T wave abnormality no longer evident in Inferior leads T wave inversion now evident in Anterolateral leads ST elevation now present in Inferior leads Confirmed by Jero Cerna ([id number]) on 03/15/2020 5:30:21 AM Referred By: Confirmed By:Jero Cerna
--- NOTE | 2020-03-15 05:31 | Electrocardiogram Report ---
Test Reason : Blood Pressure : / mmHG Vent. Rate : 053 BPM Atrial Rate : 053 BPM P-R Int : 228 ms QRS Dur : 086 ms QT Int : 446 ms P-R-T Axes : 046 056 110 degrees QTc Int : 418 ms Sinus bradycardia with 1st degree A-V block Septal infarct , age undetermined ST elevation, consider inferior injury pattern Abnormal ECG When compared with ECG of 14-MAR-2020 09:12, Septal infarct is now Present Confirmed by Jero Cerna ([id number]) on 03/15/2020 5:31:03 AM Referred By: REFERRED SELF Confirmed By:Jero Cerna
--- NOTE | 2020-03-15 05:40 | Electrocardiogram Report ---
Test Reason : Blood Pressure : / mmHG Vent. Rate : 071 BPM Atrial Rate : 071 BPM P-R Int : 194 ms QRS Dur : 090 ms QT Int : 402 ms P-R-T Axes : 050 -08 050 degrees QTc Int : 436 ms Poor data quality, interpretation may be adversely affected Normal sinus rhythm Inferior infarct , age undetermined Nonspecific T wave abnormality Abnormal ECG When compared with ECG of 14-Mar-2020 09:27, ST no longer elevated in Inferior leads T wave inversion no longer evident in Lateral leads Confirmed by Jero Cerna ([id number]) on 03/15/2020 5:40:32 AM Referred By: REFERRED SELF Confirmed By:Jero Cerna
[2020-03-15 05:54] LABS: Phosphorus 3.2 mg/dl (2.5-4.9); Troponin I 22.9 ng/ml (0-0.045)
[2020-03-15 06:14] LABS: Estimated Average Glucose 120 mg/dl; Hemoglobin A1C 5.8 % (4.5-5.6)
[2020-03-15] MEDS: LEVOTHYROXINE SODIUM 150 MCG TABLET PO SCH (06:29)
[2020-03-15] MEDS: TICAGRELOR 90 MG TAB PO SCH ×2 (07:56→21:25)
[2020-03-15] MEDS: lisinopriL 5 MG TAB PO SCH (07:56)
[2020-03-15] MEDS: ASPIRIN 81 MG ECTAB PO SCH (07:56)
[2020-03-15] MEDS: PANTOprazole 40 MG TAB PO SCH (07:57)
[2020-03-15] MEDS: ATORVASTATIN 40 MG TAB PO SCH (07:58)
[2020-03-15] MEDS: SODIUM CHLORIDE 0.9% 1000ML 1,000 ML IV SCH (07:58)
--- NOTE | 2020-03-15 08:29 | Critical Care Progress Note ---
Date of Service March 15, 2020 Assessment & Plan (1) S/P coronary artery stent placement: 49 yo M w/ PMHx. of Dyslipidemia, tobacco abuse, GERD, hypothyroidism presenting with left chest pain found to have EKG findings consistent with inferior [place] no s/p EMILY X3 for 100% occlusion of the proximal and mid RCA. Neuro - - no acute concerns Cardiac - - inferior NM, s/p cardiac catheterization and 3 stents placed in the mid and proximal RCA for 100% occlusion - blood pressure has improved, fluid discontinued - held Metoprolol tartrate 12.5 mg BID, will need to initiate after BP improves - cardiology onboard - started ASA, Brilinta, Atorvastatin 80 mg - EF 55-60% w/ hypokinesis of the inferior wall, mildly dilated right ventricle - continue to discuss/encourage tobacco cessation during this hospitalization - consider outpatient sleep study, based on body habitus and history of snoring and daytime sleepiness - Mg. 2.1, Phos. 3.2, K 4.1 Respiratory - - on 2L NC - goal oxygen saturation 88-92% GI - - on Protonix 40 mg - heart healthy diet RENAL/LYTES - - Cr. 1.04, improved likely 2/2 fluid replacement - continue to monitor - - no acute concerns ENDO - - Hyperlipidemia w/ cholesterol 235 LDL 183; on Atorvastatin 80 mg - A1C 5.8 consistent with prediabetes continue outpatient management - TSH 40, T4 0.3 patient not taking levothyroxine 150 mcg prior to hospitalization HEME - - H&H stable ID - - no acute concerns LINES/IV ACCESS - - PIV DVT PROPHYLAXIS - - Lovenox Q24H Admission and Anticipated Discharge Date Admission Date: March 14, 2020 Supervising Physician Co-Signing Physician Notes Dr. Whatley was the resident-physician during care of patient. I separately evaluated patient for bragg portions of the history and the exam. I was present during the critical portion of medical decision making, and I discussed the case with the resident. I generally agree with the findings and plan except for any additions/exceptions noted. Patient is status post RCA stenting and inferior myocardial infarction. Holding beta-lyubov at this time given bradycardia. He is currently on lisinopril and high intensity statin. Continue dual antiplatelet therapy per cardiology recommendation. Smoking cessation encouraged. Continue levothyroxine for hypothyroidism. He is stable to be moved to telemetry. Subjective Mr. Layne is feeling, "back to normal" today. He has not had any chest pain or palpitations. He had no questions for me this morning. Cardiology had seen the patient and mentioned that he would be stable to go to the floor today and potentially be discharged tomorrow if there are no complications in his clinical course. Review of Systems Review of Systems: constitutional: denies fevers, chills cardiac: denies chest pain, palpitations GI: denies nausea, vomiting Pulm.: denies cough, shortness of breath : denies urinary symptoms Physical Exam Constitutional: WD/WN, vitals as above Eyes: PERRL, conjunctivae normal, anicteric sclerae ENMT: external ear and nose normal, oropharynx normal Neck: normal visual inspection Respiratory: normal respiratory effort, lungs clear to auscultation Cardiovascular: RRR, no murmur, no edema Vessels: no JVD Extremities: no edema Results & Data Results & Data ([facility]) Vital Signs (Past 12 Hours) Vital Signs Temp Pulse Resp BP Pulse Ox 03/15/20 06:45 50 L 19 136/89 96 03/15/20 06:14 58 L 17 129/85 95 03/15/20 06:00 51 L 18 129/87 97 03/15/20 05:30 51 L 19 117/78 96 03/15/20 05:00 53 L 18 121/81 97 03/15/20 04:30 49 L 12 113/72 98 03/15/20 04:00 36.8 C 51 L 15 113/74 97 03/15/20 03:30 50 L 18 116/72 97 03/15/20 03:00 53 L 18 110/72 96 03/15/20 02:30 48 L 11 L 124/72 98 03/15/20 02:00 57 L 22 103/64 96 03/15/20 01:30 55 L 20 111/74 97 03/15/20 01:00 49 L 18 113/67 98 03/15/20 00:30 64 20 122/69 97 03/15/20 00:00 36.6 C 52 L 22 116/67 97 03/14/20 23:30 53 L 18 118/71 96 03/14/20 23:00 52 L 23 114/65 97 03/14/20 22:30 53 L 21 110/71 97 03/14/20 22:00 53 L 19 104/71 97 03/14/20 21:30 54 L 16 107/68 96 03/14/20 21:00 60 20 103/65 97 03/14/20 20:30 51 L 19 114/77 98 CBC Results Results Complete Blood Count Results: RBC 4.66 M/uL (4.7-6.1) L 03/15/20 WBC 8.48 K/uL (4.8-10.8) 03/15/20 Hgb 14.3 g/dL (14.0-18.0) 03/15/20 Hct 42.7 % (42-52) 03/15/20 Plt Count 140 K/uL (130-400) 03/15/20 Chemistry (BMP) Results BMP Results: Sodium 140 mmol/L (136-145) 03/15/20 Potassium 4.1 mmol/L (3.5-5.1) 03/15/20 Chloride 112 mmol/L (98-107) H 03/15/20 BUN 11 mg/dl (7-18) 03/15/20 Creatinine 1.04 mg/dl (0.6-1.4) 03/15/20 Glucose 89 mg/dl (70-99) 03/15/20 Resident Activity Tracking Resident Involvement: Resident Care Provided Care Provided: Adult Hospital Medicine
[2020-03-15] MEDS ORDERED: lisinopriL 5 MG TAB PO SCH (09:00)
--- NOTE | 2020-03-15 09:19 | Cardiology Progress Note ---
Date of Service March 15, 2020 Assessment & Plan (1) ST elevation (STEMI) myocardial infarction: (2) CAD (coronary artery disease): (3) S/P coronary artery stent placement: (4) Dyslipidemia: (5) Bradycardia: (6) Cigarette smoker: ASSESSMENT/PLAN: 1. RCA STEMI s/p PCI x 3: No further angina. Feels well. Continue aspirin 81 mg daily indefinitely. Continue Brilinta for at least 1 year. Continue high- intensity statin therapy. Beta-lyubov held due to bradycardia. Continue ROBBIE- inhibitor. Cardiac rehabilitation recommended. 2. CAD s/p RCA PCI x 3: No further angina. Plan as above. On discharge, recommend nitroglycerin to be used p.r.n.. 3. Dyslipidemia: High-intensity statin therapy. LDL was severely elevated as he was not compliant with outpatient statin therapy. The importance of compliance with medical therapy has been discussed. 4. Tobacco abuse: Stop smoking. 5. Hypothyroidism: Will defer to hospitalist service. He had not been taking his levothyroxine. 6. Bradycardia: Sinus bradycardia on telemetry. May be due to his hypothyroidism. If able in the future, recommend low-dose beta-lyubov given his CAD. 7. Disposition: Remain hospitalized another day. Can be transferred to PCU. If no adverse events within the next 24 hours, could be discharged home tomorrow with medical therapy as outlined. Cardiology office is scheduling a follow-up to be done in the next 1-2 weeks. Recommended cardiac rehab. Patient care discussed with critical care covering resident. Admission and Anticipated Discharge Date Admission Date: March 14, 2020 Subjective He feels much better today. No further chest discomfort. He denies shortness of breath, syncope, near-syncope, palpitations, edema, or bleeding. He has not had any issues with his right radial cath site. He was alone in his hospital room. Review of systems: As above. Physical Exam Physical Exam: Gen.: No acute distress. Alert and oriented. HEENT: Anicteric sclera. Neck: No JVD. Cardiac: No ventricular heave. Regular and mildly bradycardic in the 50s. Normal S1-S2. No murmurs, rubs, or gallops. Pulmonary: Clear to auscultation bilaterally without wheezes, rales, or rhonchi. Abdomen: Soft, nontender, nondistended, with normoactive bowel sounds. No bruits noted. Extremities: 2+ radial pulses bilaterally. 2+ posterior tibialis pulses bilaterally. No edema or cyanosis. Right radial cath site is clean, dry, and intact without erythema or discharge. Psychiatric: Affect appears appropriate. Results & Data ([facility]) Vital Signs (Past 12 Hours) Vital Signs Temp Pulse Resp BP Pulse Ox 03/15/20 08:15 58 L 22 127/96 97 03/15/20 08:00 49 L 03/15/20 07:45 57 L 17 138/89 96 03/15/20 07:15 47 L 18 129/91 96 03/15/20 06:45 50 L 19 136/89 96 03/15/20 06:14 58 L 17 129/85 95 03/15/20 06:00 51 L 18 129/87 97 03/15/20 05:30 51 L 19 117/78 96 03/15/20 05:00 53 L 18 121/81 97 03/15/20 04:30 49 L 12 113/72 98 03/15/20 04:00 36.8 C 51 L 15 113/74 97 03/15/20 03:30 50 L 18 116/72 97 03/15/20 03:00 53 L 18 110/72 96 03/15/20 02:30 48 L 11 L 124/72 98 03/15/20 02:00 57 L 22 103/64 96 03/15/20 01:30 55 L 20 111/74 97 03/15/20 01:00 49 L 18 113/67 98 03/15/20 00:30 64 20 122/69 97 03/15/20 00:00 36.6 C 52 L 22 116/67 97 03/14/20 23:30 53 L 18 118/71 96 03/14/20 23:00 52 L 23 114/65 97 03/14/20 22:30 53 L 21 110/71 97 03/14/20 22:00 53 L 19 104/71 97 03/14/20 21:30 54 L 16 107/68 96 Laboratory Results Laboratory Results - last 24 hr 03/14/20 03/14/20 03/14/20 09:15 09:15 09:15 WBC 9.55 RBC 5.23 Hgb 16.2 Hct 47.8 MCV 91.4 MCH 31.0 MCHC 33.9 RDW Std Deviation 50.3 H RDW Coeff of Cathi 14.9 H Plt Count 162 MPV 12.2 H Immature Gran % (Auto) 0.1 Neut % (Auto) 75.9 Lymph % (Auto) 17.9 [place] % (Auto) 4.3 Eos % (Auto) 1.2 Baso % (Auto) 0.6 Neut # (Auto) 7.25 H Lymph # (Auto) 1.71 [place] # (Auto) 0.41 Eos # (Auto) 0.11 Baso # (Auto) 0.06 Immature Gran # (Auto) 0.01 PT 11.2 INR 1.1 APTT 24.3 PTT Ratio 0.9 Sodium 138 Potassium 4.7 Chloride 109 H Carbon Dioxide 25 Anion Gap 4.0 BUN 15 Creatinine 1.35 Est Cr Clr Drug Dosing 88.5 Est GFR ( Amer) 71.4 Est GFR (Non-Af Amer) 61.6 BUN/Creatinine Ratio 11.1 Glucose 120 H POC Glucose Estimat Average Glucose Hemoglobin A1c Calcium 8.5 Phosphorus Magnesium Total Bilirubin 0.5 AST 37 ALT 52 Alkaline Phosphatase 82 Total Creatine Kinase 273 CK-MB (CK-2) 1.7 CK/CKMB % Calc 0.6 Troponin I < 0.015 Total Protein 7.2 Albumin 3.7 Globulin 3.5 Albumin/Globulin Ratio 1.0 Triglycerides Cholesterol LDL Cholesterol, Calc VLDL Cholesterol, Calc HDL Cholesterol Cholesterol/HDL Ratio Lipase 65 L TSH Free T4 Random Cortisol Specimen Hemolysis Nasal Screen MRSA (PCR) 03/14/20 03/14/20 03/14/20 09:15 12:05 13:32 WBC RBC Hgb Hct MCV MCH MCHC RDW Std Deviation RDW Coeff of Cathi Plt Count MPV Immature Gran % (Auto) Neut % (Auto) Lymph % (Auto) [place] % (Auto) Eos % (Auto) Baso % (Auto) Neut # (Auto) Lymph # (Auto) [place] # (Auto) Eos # (Auto) Baso # (Auto) Immature Gran # (Auto) PT INR APTT PTT Ratio Sodium Potassium Chloride Carbon Dioxide Anion Gap BUN Creatinine Est Cr Clr Drug Dosing Est GFR ( Amer) Est GFR (Non-Af Amer) BUN/Creatinine Ratio Glucose POC Glucose Estimat Average Glucose Hemoglobin A1c Calcium Phosphorus Magnesium Total Bilirubin AST ALT Alkaline Phosphatase Total Creatine Kinase CK-MB (CK-2) CK/CKMB % Calc Troponin I 28.000 H* Total Protein Albumin Globulin Albumin/Globulin Ratio Triglycerides Cholesterol LDL Cholesterol, Calc VLDL Cholesterol, Calc HDL Cholesterol Cholesterol/HDL Ratio Lipase TSH Free T4 Random Cortisol 34.46 Specimen Hemolysis Nasal Screen MRSA (PCR) Negative 03/14/20 03/14/20 03/14/20 13:32 13:32 13:32 WBC RBC Hgb Hct MCV MCH MCHC RDW Std Deviation RDW Coeff of Cathi Plt Count MPV Immature Gran % (Auto) Neut % (Auto) Lymph % (Auto) [place] % (Auto) Eos % (Auto) Baso % (Auto) Neut # (Auto) Lymph # (Auto) [place] # (Auto) Eos # (Auto) Baso # (Auto) Immature Gran # (Auto) PT INR APTT PTT Ratio Sodium Potassium Chloride Carbon Dioxide Anion Gap BUN Creatinine Est Cr Clr Drug Dosing Est GFR ( Amer) Est GFR (Non-Af Amer) BUN/Creatinine Ratio Glucose POC Glucose Estimat Average Glucose Hemoglobin A1c Calcium Phosphorus Magnesium 2.2 Total Bilirubin AST ALT Alkaline Phosphatase Total Creatine Kinase CK-MB (CK-2) CK/CKMB % Calc Troponin I Total Protein Albumin Globulin Albumin/Globulin Ratio Triglycerides Cholesterol LDL Cholesterol, Calc VLDL Cholesterol, Calc HDL Cholesterol Cholesterol/HDL Ratio Lipase TSH 140.000 H Free T4 0.30 L Random Cortisol Specimen Hemolysis Nasal Screen MRSA (PCR) 03/14/20 03/14/20 03/15/20 22:40 22:53 04:30 WBC 8.48 RBC 4.66 L Hgb 14.3 Hct 42.7 MCV 91.6 MCH 30.7 MCHC 33.5 RDW Std Deviation 51.8 H RDW Coeff of Cathi 15.4 H Plt Count 140 MPV 12.0 H Immature Gran % (Auto) 0.1 Neut % (Auto) 59.6 Lymph % (Auto) 31.4 [place] % (Auto) 7.1 Eos % (Auto) 1.3 Baso % (Auto) 0.5 Neut # (Auto) 5.06 Lymph # (Auto) 2.66 [place] # (Auto) 0.60 H Eos # (Auto) 0.11 Baso # (Auto) 0.04 Immature Gran # (Auto) 0.01 PT INR APTT PTT Ratio Sodium Potassium Chloride Carbon Dioxide Anion Gap BUN Creatinine Est Cr Clr Drug Dosing Est GFR ( Amer) Est GFR (Non-Af Amer) BUN/Creatinine Ratio Glucose POC Glucose 108 H Estimat Average Glucose Hemoglobin A1c Calcium Phosphorus Magnesium Total Bilirubin AST ALT Alkaline Phosphatase Total Creatine Kinase CK-MB (CK-2) CK/CKMB % Calc Troponin I 33.700 H* Total Protein Albumin Globulin Albumin/Globulin Ratio Triglycerides Cholesterol LDL Cholesterol, Calc VLDL Cholesterol, Calc HDL Cholesterol Cholesterol/HDL Ratio Lipase TSH Free T4 Random Cortisol Specimen Hemolysis Nasal Screen MRSA (PCR) 03/15/20 03/15/20 04:30 04:30 WBC RBC Hgb Hct MCV MCH MCHC RDW Std Deviation RDW Coeff of Cathi Plt Count MPV Immature Gran % (Auto) Neut % (Auto) Lymph % (Auto) [place] % (Auto) Eos % (Auto) Baso % (Auto) Neut # (Auto) Lymph # (Auto) [place] # (Auto) Eos # (Auto) Baso # (Auto) Immature Gran # (Auto) PT INR APTT PTT Ratio Sodium 140 Potassium 4.1 Chloride 112 H Carbon Dioxide 24 Anion Gap 4.0 BUN 11 Creatinine 1.04 Est Cr Clr Drug Dosing 114.4 Est GFR ( Amer) 97.9 Est GFR (Non-Af Amer) 84.5 BUN/Creatinine Ratio 11.0 Glucose 89 POC Glucose Estimat Average Glucose 120 Hemoglobin A1c 5.8 H Calcium 7.8 L Phosphorus 3.2 Magnesium 2.1 Total Bilirubin AST ALT Alkaline Phosphatase Total Creatine Kinase CK-MB (CK-2) CK/CKMB % Calc Troponin I 22.900 H* Total Protein Albumin Globulin Albumin/Globulin Ratio Triglycerides 125 Cholesterol 235 H LDL Cholesterol, Calc 183 VLDL Cholesterol, Calc 25 HDL Cholesterol 27 Cholesterol/HDL Ratio 9 Lipase TSH Free T4 Random Cortisol Specimen Hemolysis Nasal Screen MRSA (PCR) peak troponin 33.7. Diagnostic Findings Telemetry personally reviewed: Sinus rhythm. No arrhythmia. Cardiac catheterization 03/14/2020: Findings: LM -medium caliber, tapers with 20% distal stenosis prior to bifurcation LAD -medium caliber vessel, 40% proximal stenosis prior to takeoff of first diagonal. Mid and distal segment luminal irregularities. Medium caliber first diagonal with 30% proximal disease. Very small second diagonal with diffuse disease Circumflex -medium caliber, proximal irregularities, 40% diffuse distal disease before left PLB.. RCA -dominant, large caliber, 100% proximal acute occlusion. After reestablished flow 90% mid RCA stenosis, 50 to 60% distal stenosis at bifurcation with PDA, right PAV. LVEDP -16 -- PCI -- Antithrombotic therapy: Heparin,, IC Integrilin, ticagrelor Procedure: RCA cannulated with JR4 guide BMW wire passed across lesion into distal vessel Proximal RCA lesion predilated with 2.5 compliant balloon With reestablished flow became bradycardic to the 20s, hypotensive to the 50s requiring atropine, IV fluid bolus and dopamine. Dilated lesion stented with 3.5 x 22 mm [place] drug-eluting stent Stent post-dilated with 3.75 noncompliant balloon Developed transient SVT. Dopamine transition to norepinephrine Noted to have residual severe mid RCA stenosis which was treated with 3.5 x 12 mm [place] drug-eluting stent. Mid RCA stent postdilated with 3.75 balloon After post dilation noted to have distal edge dissection Third EMILY (3.0 x 12 [place]) overlapped with distal aspect of mid RCA stent Post procedure SHERLYN 3 flow, stents well expanded with minimal residual stenosis and no apparent cardiac complications. Norepinephrine weaned off prior to departure from [employer] Arterial Closure: TR band Summary: 1. Inferior STEMI/100% acute proximal RCA occlusion 2. Moderate non-culprit coronary artery disease -50 to 60% residual distal RCA stenosis involving bifurcation of PDA, posterior AV branch 20% distal left main 40% proximal LAD 40% distal circumflex 3. Normal intracardiac filling pressure 4. Transient cardiogenic shock, symptomatic bradycardia requiring pressors. 5. Successful PCI of proximal RCA with single EMILY (3.5 x 22 mm marsha; postdilated with 3.75 NC). 6. Successful PCI of mid RCA with 2 overlapping EMILY (3.5 x 12, 3.0 x 12 mm Marsha). Echo 03/14/2020: Normal LV size and systolic function. EF 55-60%. Inferior wall not well visualized but appears to be hypokinetic to akinetic. Mild LVH. Mildly dilated RV with mildly reduced systolic function. No significant valvular abnormalities Medications Administered Current Inpatient Medications Acetaminophen (Acetaminophen 325 Mg Tab) 650 mg PO Q4H PRN PRN Reason: MILD Pain (Scale 1,2,3) Stop: 04/13/20 11:07 Aspirin (Aspirin 81 Mg Ectab) [facility] [place] Stop: 04/14/20 08:59 Last Admin: 03/15/20 07:56 Dose: 81 mg Documented by: Atorvastatin Calcium (Atorvastatin 40 Mg Tab) 80 mg PO QAM [facility] Stop: 04/14/20 08:59 Last Admin: 03/15/20 07:58 Dose: 80 mg Documented by: Enoxaparin Sodium (Enoxaparin Inj 40 Mg/0.4 Ml Syr) 40 mg SQ Q24H [facility] Stop: 04/13/20 17:59 Last Admin: 03/14/20 18:31 Dose: 40 mg Documented by: Sodium Chloride (Nss 1000ml) 1,000 mls @ 125 mls/hr IV .Q8H [facility] Stop: 04/13/20 15:29 Last Admin: 03/15/20 07:58 Dose: Not Given Documented by: Levothyroxine Sodium (Levothyroxine Sodium 150 Mcg Tablet) 150 mcg PO DAILYBB [facility] Stop: 04/14/20 06:29 Last Admin: 03/15/20 06:29 Dose: 150 mcg Documented by: Lisinopril (Lisinopril 5 Mg Tab) 5 mg PO QAM [facility] Stop: 04/14/20 08:59 Last Admin: 03/15/20 07:56 Dose: 5 mg Documented by: Miscellaneous (Icu Protocol For Hyperglycemia) 1 ea N/A PRN PRN; Protocol PRN Reason: Hyperglycemia Protocol Stop: 03/16/20 11:07 Ondansetron HCl (Ondansetron Inj 2 Mg/Ml 2 Ml Vial) 4 mg IV Q6H PRN PRN Reason: Nausea And Vomiting Stop: 04/13/20 11:07 Pantoprazole Sodium (Pantoprazole 40 Mg Tab) 40 mg PO QAM [facility] Stop: 04/14/20 08:59 Last Admin: 03/15/20 07:57 Dose: 40 mg Documented by: Ticagrelor (Ticagrelor 90 Mg Tab) 90 mg PO BID [facility] Stop: 04/13/20 22:59 Last Admin: 03/15/20 07:56 Dose: 90 mg Documented by: PG Care Time/CCT Total # of Minutes Spent Total Time Spent with Patient: Total time spent is greater than 50% in coordination of care (as documented) at patient's floor/unit and/or counseling patient: Coding Level of Care Code 43593 Subseq Hosp Care Lvl [address] elevation (STEMI) myocardial infarction I21.3 CAD (coronary artery disease) I25.10 S/P coronary artery stent placement Z95.5 Dyslipidemia E78.5 Bradycardia R00.1 Cigarette smoker F17.210
--- NOTE | 2020-03-15 15:01 | Billing Data ---
Date of Service March 15, 2020 Coding Level of Care Code 79654 Initial Inpt Care Lvl 2
--- NOTE | 2020-03-15 15:05 | Electrocardiogram Report ---
Test Reason : Blood Pressure : / mmHG Vent. Rate : 056 BPM Atrial Rate : 056 BPM P-R Int : 192 ms QRS Dur : 086 ms QT Int : 448 ms P-R-T Axes : 032 -44 -24 degrees QTc Int : 432 ms Sinus bradycardia Left axis deviation Inferior infarct (cited on or before 14-MAR-2020) Abnormal ECG When compared with ECG of 14-MAR-2020 12:13, QRS axis Shifted left T wave inversion now evident in Inferior leads Nonspecific T wave abnormality, improved in Lateral leads Confirmed by Salvatore Sue ([id number]) on 03/15/2020 3:05:00 PM Referred By: REFERRED SELF Confirmed By:Salvatore Sue
[2020-03-15] MEDS: ENOXAPARIN INJ 40 MG/0.4 ML SYR SQ SCH (18:38)
[2020-03-15] MEDS ORDERED: METOPROLOL TARTRATE 25 MG TAB PO SCH (21:00)
--- NOTE | 2020-03-15 21:38 | Hospitalist Progress Note ---
Date of Service March 15, 2020 Assessment & Plan (1) ST elevation (STEMI) myocardial infarction: Appreciate cardiology and ICU management Continue aspirin 81 mg daily indefinitely. Continue Brilinta for at least 1 year. Continue high-intensity statin therapy. Beta-lyubov held due to bradycardia. Continue ROBBIE-inhibitor. Follow-up cardiac rehab OK TO TRANSFER OUT OF THE ICU (2) Cardiogenic shock: BP HAS IMPROVED, WILL TRANSFER OUT OF THE ICU (3) Cigarette smoker: Tobacco cessation advised Nicotine replacement products as needed (4) Dyslipidemia: Lipid panel with a.m. labs Atorvastatin 80 mg p.o. daily as above (5) Gastroesophageal reflux disease: Switch omeprazole for pantoprazole as per hospital hospital formulary (6) Hypothyroidism: TSH 145 [February 19 2020]. Secondary to not taking his levothyroxine. No current myxedema crisis. Continue levothyroxine 150 mcg p.o. daily (7) Hepatic steatosis: Notable history of this. Follow-up outpatient with PCP. (8) Solitary pulmonary nodule: History of this. Chest x-ray unremarkable. Follow-up outpatient (9) History of prediabetes: History of this. HbA1c with a.m. labs. Glucose currently acceptable. Admission and Anticipated Discharge Date Admission Date: March 14, 2020 Subjective Patient reports feeling better. He has no new complaints at this time. Review of Systems Review of Systems: All systems reviewed & are unremarkable except as noted in HPI & below Physical Exam Physical Exam: Constitutional: well developed; + not well nourished and no acute distress Eyes: PERRL, conjunctivae normal, anicteric sclerae ENMT: external ear and nose normal, oropharynx normal Neck: trachea midline, no thyromegaly Respiratory: no crackles, no rales, no rhonchi and no wheezes Cardiovascular: Rate/Rhythm: regular rate and regular rhythm Heart Sounds: no murmur Vessels: radial pulses present (Left) Extremities: normal capillary refill and + pedal edema (Trace equal bilateral ankles); no calf tenderness Gastrointestinal (Abdomen): normal bowel sounds, soft, nontender, no hepatosplenomegaly Musculoskeletal: no cyanosis or clubbing, extremities motor strength 5/5 Skin: no rashes, warm and dry Neurologic: moves all extremities and awake; Psychiatric: A+Ox3, euthymic affect Genitourinary: no CVA tenderness Lymphatic: no cervical or axillary lymphadenopathy Results & Data Results & Data ([facility]) Vital Signs (Past 12 Hours) Vital Signs Temp Pulse Pulse Resp BP BP Pulse Ox 03/15/20 19:42 59 L 03/15/20 19:36 36.8 C 65 24 118/86 96 03/15/20 17:49 55 L 12 134/75 96 03/15/20 16:49 55 L 21 135/99 95 03/15/20 15:49 54 L 12 129/86 96 03/15/20 14:49 53 L 21 136/90 93 03/15/20 14:00 57 L 20 94 03/15/20 13:49 59 L 15 131/87 96 03/15/20 12:48 53 L 23 148/90 H 94 03/15/20 12:00 58 L 03/15/20 11:49 59 L 24 130/88 94 03/15/20 10:45 58 L 17 133/75 95 03/15/20 10:15 53 L 18 133/87 94 03/15/20 09:45 55 L 20 129/86 95 PG Care Time/CCT Total # of Minutes Spent Total Time Spent with Patient: Total time spent is greater than 50% in coordination of care (as documented) at patient's floor/unit and/or counseling patient: Coding Level of Care Code 09698 Subseq Hosp Care Lvl [address] elevation (STEMI) myocardial infarction I21.3 Cardiogenic shock R57.0 Cigarette smoker F17.210 Dyslipidemia E78.5 Gastroesophageal reflux disease K21.9 Hypothyroidism E03.9 Hepatic steatosis K76.0 Solitary pulmonary nodule R91.1 History of prediabetes Z87.898 Time Spent (min) 35
[2020-03-16 05:31] LABS: BUN Creatinine Ratio 9.5 (10-20); Creatinine Clr Calc Pharmacy 93.9 ml/min; Est GFR (African American) 76.9; Est GFR (Non-African American) 66.4
[2020-03-16] MEDS: LEVOTHYROXINE SODIUM 150 MCG TABLET PO SCH (06:53)
[2020-03-16] MEDS: ASPIRIN 81 MG ECTAB PO SCH (08:29)
[2020-03-16] MEDS: TICAGRELOR 90 MG TAB PO SCH (08:29)
[2020-03-16] MEDS: PANTOprazole 40 MG TAB PO SCH (08:29)
[2020-03-16] MEDS: lisinopriL 5 MG TAB PO SCH (08:29)
[2020-03-16] MEDS: ATORVASTATIN 40 MG TAB PO SCH (08:29)
--- NOTE | 2020-03-16 10:41 | Cardiology Progress Note ---
Date of Service March 16, 2020 Assessment & Plan (1) ST elevation (STEMI) myocardial infarction: (2) Dyslipidemia: (3) Cigarette smoker: ASSESSMENT/PLAN: 1. RCA STEMI s/p PCI x 3: Feeling well with no further discomfort. Stable for discharge today on statin, aspirin and Brilinta. 2. Dyslipidemia: Hopefully will be compliant with his statin, he needs ongoing therapy. 3. Tobacco abuse: He is to stop smoking hopefully he will comply. 4. Bradycardia: Without beta-blockade his heart rate is good, for the moment therefore will follow him without beta-blockade. (4) Bradycardia: Admission and Anticipated Discharge Date Admission Date: March 14, 2020 Subjective He is feeling well today, he has no complaints, is anxious to go home room has no chest discomfort. Physical Exam Physical Exam: Constitutional: Alert, cooperative and in no distress. Pulmonary: Clear to auscultation bilaterally. Cardiac: Regular rhythm with no murmur, gallop or rub. Abdomen: Soft, nontender with normal bowel sounds. Extremities: No edema. Skin: No rash, ecchymoses or petechiae. His right wrist catheterization site is without hematoma or bleeding Results & Data ([facility]) Vital Signs (Past 12 Hours) Vital Signs Temp Pulse Pulse Resp BP BP Pulse Ox 03/16/20 08:00 36.8 C 64 16 137/92 95 03/16/20 03:55 36.5 C 58 L 22 127/94 94 03/16/20 00:03 36.5 C 62 7 L 112/62 03/16/20 00:00 59 L Laboratory Results Comprehensive Metabolic Panel 03/16/20 Range/Units 04:48 Sodium 140 (136-145) mmol/L Potassium 4.0 (3.5-5.1) mmol/L Chloride 110 H (98-107) mmol/L Carbon Dioxide 26 (21-32) mmol/L BUN 12 (7-18) mg/dl Creatinine 1.27 (0.6-1.4) mg/dl Glucose 83 (70-99) mg/dl Calcium 9.0 D (8.5-10.1) mg/dl Intake and Output 03/15/20 03/16/20 03/16/20 22:59 06:59 14:59 Intake Total 120 / 1910 0 / 1910 Output Total 650 / 2451 801 / 2451 Balance -530 / -541 -801 / -541 Intake: Oral 120 / 910 0 / 910 Output: Urine 650 / 2450 800 / 2450 # Bowel Movements Other: # Unmeasured Voids 1 Weight 119.8 kg Diagnostic Findings Telemetry: Sinus rhythm, rate well controlled. PG Care Time/CCT Total # of Minutes Spent Total Time Spent with Patient: Total time spent is greater than 50% in coordination of care (as documented) at patient's floor/unit and/or counseling patient: Coding Level of Care Code 66170 Subseq Hosp Care Lvl [address] elevation (STEMI) myocardial infarction I21.3 Dyslipidemia E78.5 Cigarette smoker F17.210 Bradycardia R00.1
--- NOTE | 2020-03-24 16:50 | Discharge Summary ---
Date of Service March 16, 2020 Admission HPI Per Admitting Provider Julio Layne is a 49-year-old male with tobacco use disorder who presents to the ER with substernal chest pain. This started at approximately 6 AM while shaving, worse on exertion, substernal radiating to his left arm, burning. He had associated diaphoresis, nausea, shortness of breath. He called his friend at the [facility] who came out to assess him and called for an ambulance. ASA 324 mg given in route. Cardiology were consulted stat for chest pain with nondiagnostic ST elevation in inferior leads with T wave inversion laterally. Chest pain was persistent after the nitroglycerin x2 given and he was taken emergently to the [facility]. His cardiac catheterization showed an absent acute proximal RCA occlusion with successful PCI with x3 EMILY to RCA. During the catheterization he became bradycardic and hypotensive requiring IV fluid bolus and dopamine. He developed SVT and dopamine was transitioned to norepinephrine. Norepinephrine was weaned off prior to departure from the [facility]. When seen the patient was in the ICU after cardiac catheterization. He is chest pain-free at this time. He does report increased fatigue since being out of his levothyroxine for approximately 3 months. He reports being out of his medication since November as he had not seen his PCP in some time to refill this. Previously stable on 150 mcg p.o. daily. Principal Diagnosis STEMI Discharge Exam Constitutional: well developed; + not well nourished and no acute distress Eyes: PERRL, conjunctivae normal, anicteric sclerae ENMT: external ear and nose normal, oropharynx normal Neck: trachea midline, no thyromegaly Respiratory: no crackles, no rales, no rhonchi and no wheezes Cardiovascular: Rate/Rhythm: regular rate and regular rhythm Heart Sounds: no murmur Vessels: radial pulses present (Left) Extremities: normal capillary refill and + pedal edema (Trace equal bilateral ankles); no calf tenderness Gastrointestinal (Abdomen): normal bowel sounds, soft, nontender, no hepatosplenomegaly Musculoskeletal: no cyanosis or clubbing, extremities motor strength 5/5 Skin: no rashes, warm and dry Neurologic: moves all extremities and awake; Psychiatric: A+Ox3, euthymic affect Genitourinary: no CVA tenderness Lymphatic: no cervical or axillary lymphadenopathy Discharge Data Allergies Allergy/AdvReac Type Severity Reaction Status Date / Time No Known Allergies Allergy Unverified 03/22/20 08:06 Consultations 03/14/20 09:27 Consult Cardiology Stat 03/14/20 09:42 Consult Cardiology Stat 03/14/20 10:22 ED Decision to Admit Routine 03/14/20 11:12 Consult Cardiac Rehabilitation Routine Consult Case Management - Discharge Planning Routine Consult [employer] Sales Representative Routine 03/16/20 12:29 Consult Lung Nodule Program Routine Consult [facility] child care associate teacher Routine Procedures Performed Operation Date: 03/14/20 09:45 Actual Procedures p Aspiration/PCI w/EMILY for Stemi - Bandar Avendaño MD s Cath, Left with Cors and Vent - Bandar Avendaño MD s Cineradiography w/Routine Exam - Bandar Avendaño MD Ordered Studies 03/14/20 09:42 CL Cath Imgs for PACS use only Stat Hospital Course (1) ST elevation (STEMI) myocardial infarction: Appreciate cardiology and ICU management Continue aspirin 81 mg daily indefinitely. Continue Brilinta for at least 1 year. Continue high-intensity statin therapy. Beta-lyubov held due to bradycardia. Continue ROBBIE-inhibitor. Follow-up cardiac rehab OK to discharge patient. (2) Cardiogenic shock: BP HAS IMPROVED (3) Cigarette smoker: Tobacco cessation advised Nicotine replacement products as needed (4) Dyslipidemia: Lipid panel with a.m. labs Atorvastatin 80 mg p.o. daily as above (5) Gastroesophageal reflux disease: Switch omeprazole for pantoprazole as per hospital hospital formulary (6) Hypothyroidism: TSH 145 [February 19 2020]. Secondary to not taking his levothyroxine. No current myxedema crisis. Continue levothyroxine 150 mcg p.o. daily (7) Hepatic steatosis: Notable history of this. Follow-up outpatient with PCP. (8) Solitary pulmonary nodule: History of this. Chest x-ray unremarkable. Follow-up outpatient (9) History of prediabetes: History of this. HbA1c with a.m. labs. Glucose currently acceptable. Total Time Total Time Spent Total Time Spent (In Minutes): 32 Total Time Includes: Examination of the Patient, Discharge Planning and Medication Reconciliation Discharge Plan Discharge Items Patient Disposition: Home - Self-Care Reason For Visit: STEMI Discharge Diagnosis: STEMI Activity: Resume your previous activity Non-emergency contact: Primary Care Provider Call non-emergency contact if: you have any medication questions Follow-up/Referrals: Raji Barnett MD [Primary Care Provider] - Diet: Heart Healthy Add Attending Provider Instructions: Home Care: * Take your medications exactly as directed. Don't skip doses. * Remember that recovery after a heart attack takes time. Plan to rest for at lease 4-8 weeks while you recover. Then return to normal activity when your doctor says it's okay. * Ask your doctor about joining a heart rehabilitation program. * Tell your doctor if you are feeling depressed. Feelings of sadness are common after a heart attack, but it is important that you speak to someone if you are feeling overwhelmed by these feelings. * If you are having chest pain, call 911 for an ambulance. Do NOT drive yourself to the hospital. * Ask your family members to learn CPR. * Learn to take your own blood pressure and pulse. Keep a record of your results. Ask your doctor when you should seek emergency medical attention. He or she will tell you which blood pressure reading is dangerous. Lifestyle Changes: * Maintain a healthy weight. Get help to lose any extra pounds. * Cut back on salt. * Limit canned, dried, packaged, and fast foods. * Don't add salt to your food. * Season foods with herbs instead of salt when you cook. * Break the smoking habit. Enroll in a stop-smoking program to improve your chances of success. * Limit fatty foods. * Ask your doctor about having your lipid levels checked regularly. * Build up your activity according to your doctor's recommendation. * Ask your doctor when it's okay to resume sexual activity. * Tell your doctor about any erectile dysfunction (ED) medication you are taking. Some ED medications are not safe if you take certain heart medications. * Try to manage stress. Follow Up: It is important for you to keep your follow up appointments with your medical provider. Need to followup with PCP in 1-2 weeks. Need to followup with cardio within 1 month. Pending Studies at Discharge: No Stand-Alone Forms: [employer], Smoking Cessation Medications and DC Order Prescriptions: New atorvastatin 40 mg Tablet 80 mg PO QAM Qty: 30 RF: 0 lisinopril [Zestril] 5 mg Tablet 5 mg PO QAM Qty: 30 RF: 0 aspirin 81 mg Tablet,Delayed Release (Dr/Ec) 81 mg PO QAM Qty: 30 RF: 0 Brilinta 90 mg Tablet 90 mg PO BID Qty: 60 RF: 0 Continued sildenafil 50 mg tablet 50 mg PO DAILY PRN (Reason: Erectile Dysfunction) Qty: 6 RF: 0 omeprazole 20 mg capsule,delayed release(DR/EC) 20 mg PO QAM RF: 0 levothyroxine 150 mcg tablet 150 mcg PO DAILY Qty: 90 RF: 0 Discharge Orders: Discharge Order (Routine); Ordered 03/16/20 Ordered By: Reyes Tovar Admission Data Admit Date/Time: 03/14/20 10:35 Attending Provider: Reyes Tovar Admit Provider: Bandar Avendaño Primary Care Provider: Raji Barnett Other Providers: Jero Cerna ; Bandar Avendaño ; Arnie Frederick ; Kolby Gonzalez Other Interventions: Discharge Summary Assessment (RN) Last Done: 03/16/20 12:35 Coding Level of Care Code D/C Day Management >[address] elevation (STEMI) myocardial infarction I21.3 Cardiogenic shock R57.0 Cigarette smoker F17.210 Dyslipidemia E78.5 Gastroesophageal reflux disease K21.9 Hypothyroidism E03.9 Hepatic steatosis K76.0 Solitary pulmonary nodule R91.1 History of prediabetes Z87.898 Time Spent (min) 32
== END 2020-03-16 13:29 | disposition home or self-care (01) | DRG 246 ==
LOC: ED 09:09 → CC 09:55 → 1E 09:55 → SUATTDRO 10:35 → 1E 10:35